=== PATIENT | male | born 1965 | race African-American/Black ===

== ENCOUNTER 2019-07-02 17:31 | Emergency (ER) | payer MEDICARE, MEDICAID ==
[~2019-07-02] VITALS: Ht 172.7 cm; Wt 86.2 kg
[2019-07-02] MEDS ORDERED: IPRATROPIUM BROM 0.5 MG/2.5ML INH SOL HHN ONE (19:15)
[2019-07-02] MEDS ORDERED: ALBUTEROL SULF 2.5 MG/0.5ML(0.5%) NEB SOLN HHN ONE (19:15)
[2019-07-02 19:56] LABS: Basophils # (auto) 0 uL; Basophils % (auto) 0.4 % (0.0-2.0); Eosinophils # (auto) 0.2 uL; Eosinophils % (auto) 2.7 % (0.0-7.0); Hematocrit 37.5 % (41.0-53.0); Hemoglobin 12.5 g/dL (13.5-17.5); Lymphocytes # (auto) 0.9 uL; Lymphocytes % (auto) 11.4 % (10.0-50.0); Mean Corpuscular Hemoglobin 29.9 pg (28.0-32.0); Mean Corpuscular Hgb Conc. 33.2 g/dL (32.0-36.0); Mean Corpuscular Volume 90.1 fL (80.0-100.0); Monocytes # (auto) 0.7 uL; Monocytes % (auto) 9.1 % (0.0-12.0); Neutrophils # (auto) 6.3 uL; Neutrophils % (auto) 76.4 % (37.0-80.0); Platelet Count (auto) 198 10^3/uL (140-450); Red Blood Cells 4.16 10^6/uL (4.5-5.90); White Blood Cell 8.2 10^3/uL (4.4-10.8)
[2019-07-02 20:24] LABS: Albumin 3.3 g/dL (3.4-5.0); Calcium 9.5 mg/dL (8.5-10.1)
[2019-07-02 20:29] LABS: BUN/Creatinine Ratio 25.4; Bilirubin, Total 0.3 mg/dL (0.2-1.0); Total Protein 8.3 g/dL (6.4-8.2)
[2019-07-02 20:50] LABS: Urine Bacteria NONE SEEN /hpf (None Seen); Urine Blood 1+ /uL (Negative); Urine Hyaline Cast MOD /lpf (0 - 2); Urine Mucus FEW (None Seen); Urine Specific Gravity 1.015 (1.001-1.035); Urine WBC 49 /hpf (0 - 3)
[2019-07-02] MEDS ORDERED: LEVOFLOXACIN 500 MG TAB PO ONE (21:15)
[2019-07-02 22:01] VITALS: BP 157/77
== END 2019-07-03 00:18 | disposition home or self-care (01) ==
LOC: EDBD 17:31 → ER 17:51
DX: J18.1 Lobar pneumonia, unspecified organism (principal); N39.0 Urinary tract infection, site not specified
CPT/HCPCS: 36415; 71045; 80053; 81001; 82962; 85025; 94644; 99285; J7611; J7644

== ENCOUNTER 2019-07-05 15:13 | Inpatient (IN) | payer MEDICARE, MEDICAID ==
[~2019-07-05] VITALS: Ht 175.3 cm; Wt 112.6 kg
[2019-07-05] MEDS ORDERED: SODIUM CHLORIDE 0.9% 1,000 ML IV ONE (15:44)
[2019-07-05 17:46] LABS: Basophils # (auto) 0.1 uL; Basophils % (auto) 0.8 % (0.0-2.0); Eosinophils # (auto) 0.1 uL; Eosinophils % (auto) 0.7 % (0.0-7.0); Hematocrit 37.8 % (41.0-53.0); Hemoglobin 12.6 g/dL (13.5-17.5); Lymphocytes # (auto) 1.4 uL; Lymphocytes % (auto) 15.1 % (10.0-50.0); Mean Corpuscular Hemoglobin 29.8 pg (28.0-32.0); Mean Corpuscular Hgb Conc. 33.2 g/dL (32.0-36.0); Mean Corpuscular Volume 89.7 fL (80.0-100.0); Monocytes # (auto) 0.7 uL; Monocytes % (auto) 7.9 % (0.0-12.0); Neutrophils % (auto) 75.5 % (37.0-80.0); Nucleated Red Blood Cells % 0.1 %; Platelet Count (auto) 220 10^3/uL (140-450); Red Blood Cells 4.22 10^6/uL (4.5-5.90); Red Cell Distribution Width 15.1 % (11.8-14.3); White Blood Cell 9.3 10^3/uL (4.4-10.8)
[2019-07-05 17:58] LABS: Alanine Aminotransferase 19 U/L (16-61); Albumin 3.4 g/dL (3.4-5.0); Anion Gap 8 (5-15); Aspartate Aminotransferase 11 U/L (15-37); BUN/Creatinine Ratio 31.7; Blood Urea Nitrogen 19 mg/dL (7-18); Calcium 9.5 mg/dL (8.5-10.1); Carbon Dioxide 28 mmol/L (21-32); Chloride 104 mmol/L (98-107); GFR African American 181 mL/min; GFR Non-African American 149 mL/min; Glucose 60 mg/dL (74-106); Sodium 140 mmol/L (136-145)
[2019-07-05] MEDS ORDERED: LACTULOSE 20Gm/30ML SOLN PO PRN (18:00)
[2019-07-05] MEDS ORDERED: MORPHINE SULF INJ 2 MG/ML SYRINGE 1ML IV PRN (18:00)
[2019-07-05] MEDS ORDERED: ALBUTEROL SULF 2.5 MG/0.5ML(0.5%) NEB SOLN NEB PRN (18:00)
[2019-07-05] MEDS ORDERED: DEXTROSE (50%) 50ML SYRG IV PRN (18:00)
[2019-07-05] MEDS ORDERED: OSELTAMIVIR 75 MG CAP PO ONE (18:00)
[2019-07-05] MEDS ORDERED: NITROGLYCERIN 0.4 MG SL TAB SL PRN (18:00)
[2019-07-05 18:04] LABS: Alkaline Phosphatase 60 U/L (45-117); Bilirubin, Total 0.4 mg/dL (0.2-1.0); Total Protein 8.3 g/dL (6.4-8.2)
[2019-07-05 18:07] LABS: Potassium 2.9 mmol/L (3.5-5.1)
[2019-07-05] MEDS ORDERED: ARTIFICIAL TEARS 15ml EACHEYE PRN (18:30)
[2019-07-05] MEDS ORDERED: POTASSIUM EFFERVESENT TAB 25 MEQ PO ONE (18:45)
[2019-07-05 19:14] VITALS: BP 162/90
--- NOTE | 2019-07-05 20:40 | NUR ---
[facility] Patient oriented to primary RN, unit, room, bed, and unit policies regarding patient care and visiting hours. Patient weighed by bedscale and encouraged to call if they need something. All questions and concerns addressed, patient verbalized understanding. Bed locked in lowest position and bed rails up x2. Call light within reach.
[2019-07-05 21:00] VITALS: BP 119/84
[2019-07-05] MEDS: IPRATROPIUM BROM 0.5 MG/2.5ML INH SOL NEB SCH (21:20)
[2019-07-05] MEDS: ALBUTEROL SULF 2.5 MG/0.5ML(0.5%) NEB SOLN NEB SCH (21:20)
[2019-07-05 21:38] VITALS: BP 119/84
[2019-07-05 22:00] VITALS: BP 142/84
[2019-07-05] MEDS: InsuLIN REG 1unit/0.01ml Soln (100units/ml) SC SCH (22:00)
[2019-07-05] MEDS: POTASSIUM CHL 20MEQ/100ML 100 ML IV SCH (22:10)
[2019-07-05] MEDS: CARVEDILOL 12.5 MG TAB PO SCH (22:45)
[2019-07-05] MEDS: DOCUSATE SOD 100 MG CAP PO SCH (22:46)
[2019-07-05] MEDS: OXYBUTYNIN CHL 5 MG TAB PO SCH (22:46)
[2019-07-05] MEDS: OSELTAMIVIR 75 MG CAP PO SCH (22:47)
[2019-07-05] MEDS: ACCU-CHEK COMFORT CURVE STRIP VI SCH (22:52)
[2019-07-06] MEDS: ALBUTEROL SULF 2.5 MG/0.5ML(0.5%) NEB SOLN NEB SCH ×4 (00:28→18:34)
[2019-07-06] MEDS: IPRATROPIUM BROM 0.5 MG/2.5ML INH SOL NEB SCH ×4 (00:28→18:34)
[2019-07-06] MEDS: POTASSIUM CHL 20MEQ/100ML 100 ML IV SCH (00:44)
[2019-07-06 00:47] LABS: Urine Bacteria MOD /hpf (None Seen); Urine Blood TRACE /uL (Negative); Urine Mucus FEW (None Seen); Urine Specific Gravity 1.021 (1.001-1.035); Urine WBC 65 /hpf (0 - 3)
[2019-07-06] MEDS: PROMETHAZINE HCL 25 MG/ML 1ML IV PRN ×2 (01:43→13:16)
[2019-07-06] MEDS: SOD CHL 0.9%/ KCL 40MEQ 1,000 ML IV SCH ×3 (03:33→20:40)
[2019-07-06] MEDS ORDERED: BACL20TA PO (04:35)
[2019-07-06] MEDS ORDERED: FERR27TA2 PO (04:35)
[2019-07-06] MEDS ORDERED: DOCU-94 PO (04:35)
[2019-07-06] MEDS ORDERED: TRAM50TA2 PO (04:35)
[2019-07-06] MEDS ORDERED: MODA200T50 PO (04:35)
[2019-07-06] MEDS ORDERED: AMLO10TA13 PO (04:35)
[2019-07-06] MEDS ORDERED: INSU100I2 SC (04:35)
[2019-07-06] MEDS ORDERED: PIO30T PO (04:35)
[2019-07-06] MEDS ORDERED: LISI40TA PO (04:35)
[2019-07-06] MEDS ORDERED: METH118C PO (04:35)
[2019-07-06] MEDS ORDERED: OXYB5TAB61 PO (04:35)
[2019-07-06] MEDS ORDERED: LORA10CA12 PO (04:35)
[2019-07-06] MEDS ORDERED: ASCO100076 PO (04:35)
[2019-07-06] MEDS ORDERED: PSYL0.524 PO (04:35)
[2019-07-06] MEDS ORDERED: RANI-226 PO (04:35)
[2019-07-06] MEDS ORDERED: GLIP10TA9 PO (04:35)
[2019-07-06] MEDS ORDERED: POTA10TA51 PO (04:35)
[2019-07-06] MEDS ORDERED: INSU300I SC (04:35)
[2019-07-06] MEDS ORDERED: MULTTAB OR (04:35)
[2019-07-06] MEDS ORDERED: ALEN1TAB32 PO (04:35)
[2019-07-06] MEDS ORDERED: CALCTAB25 PO (04:35)
[2019-07-06] MEDS ORDERED: CARV6.2551 PO ×2 (04:35)
[2019-07-06] MEDS ORDERED: SENN-62 PO (04:35)
[2019-07-06] MEDS ORDERED: IPRA0.00 IN (04:35)
[2019-07-06] MEDS ORDERED: HYDR50TA15 PO (04:35)
[2019-07-06] MEDS ORDERED: METO10TA3 PO (04:35)
[2019-07-06] MEDS ORDERED: PYRI50TA67 PO (04:35)
[2019-07-06] MEDS ORDERED: FLUT1SPR5 (04:35)
[2019-07-06] MEDS ORDERED: ACET-1304 PO (04:35)
[2019-07-06] MEDS ORDERED: CYAN1TAB11 PO (04:35)
[2019-07-06] MEDS ORDERED: CHLO25TA22 PO (04:35)
[2019-07-06] MEDS ORDERED: IBUP800T24 PO (04:35)
[2019-07-06] MEDS ORDERED: TAMS0.4C36 PO (04:35)
[2019-07-06] MEDS ORDERED: CHOL20007 PO (04:35)
[2019-07-06] MEDS ORDERED: DIAZ2TAB PO (04:35)
[2019-07-06] MEDS ORDERED: CRANCAP4 PO (04:35)
[2019-07-06] MEDS ORDERED: ROSU5TAB5 PO (04:35)
[2019-07-06] MEDS ORDERED: FENO134C PO (04:35)
[2019-07-06] MEDS ORDERED: ARTISOL13 EACHEYE (04:35)
[2019-07-06] MEDS ORDERED: DICL-176 PO (04:35)
[2019-07-06] MEDS ORDERED: OYST500T48 OR (04:35)
[2019-07-06] MEDS ORDERED: NIAC250C16 PO (04:35)
[2019-07-06 05:24] VITALS: BP 137/76
[2019-07-06] MEDS: ACCU-CHEK COMFORT CURVE STRIP VI SCH ×4 (06:29→22:46)
[2019-07-06] MEDS: glipiZIDE 5 MG TAB PO SCH (07:03)
[2019-07-06] MEDS: InsuLIN REG 1unit/0.01ml Soln (100units/ml) SC SCH ×4 (07:04→22:46)
[2019-07-06 08:56] VITALS: BP 146/94
[2019-07-06] MEDS: CARVEDILOL 12.5 MG TAB PO SCH ×2 (08:57→17:42)
--- NOTE | 2019-07-06 09:45 | NUR ---
SKIN ASSESSMENT COMPLETED. HEALING WOUND, PINK IN APPEARANCE TO RIGHT LOWER LATERAL BUTTOCK, HEALED ULCER TO SACRUM; AREAS CLEANSED WITH NS; HYDRA-GUARD APPLIED, OPTIFOAM APPLIED. COMPLETE BED LINEN CHANGE. COMFORTABLE ENVIRONMENT PROVIDED. PT TOLERATED ACTIVITY WELL. BED LOCKED AND IN LOWEST POSITION. CALL LIGHT WITHIN REACH.
[2019-07-06] MEDS: OSELTAMIVIR 75 MG CAP PO SCH ×3 (10:00→22:47)
[2019-07-06] MEDS: OXYBUTYNIN CHL 5 MG TAB PO SCH ×2 (11:05→22:46)
[2019-07-06] MEDS: LEVOFLOXACIN 500MG 100 ML IV SCH (11:05)
[2019-07-06] MEDS: DOCUSATE SOD 100 MG CAP PO SCH ×2 (11:05→22:46)
[2019-07-06] MEDS: LISINOPRIL 20 MG TAB PO SCH (11:07)
[2019-07-06] MEDS: amLODIPine BESYLATE 5 MG TAB PO SCH (11:08)
[2019-07-06] MEDS: ENOXAPARIN SOD 40 MG/0.4 ML SYRINGE SC SCH (11:08)
[2019-07-06 13:00] VITALS: BP 162/81
[2019-07-06] MEDS ORDERED: LORATADINE 10 MG TAB PO ONE (14:15)
[2019-07-06] MEDS ORDERED: HYDROcodone-ACET 5/325MG TAB PO PRN (14:15)
[2019-07-06] MEDS ORDERED: SIMETHICONE 80 MG CHEWABLE TABLET PO ONE (14:15)
[2019-07-06] MEDS: ACETAMINOPHEN 500 MG TAB PO PRN (15:02)
[2019-07-06] MEDS: guaiFENesin-DM 100/10mg/5ml SYR PO PRN ×2 (15:02→23:03)
--- NOTE | 2019-07-06 15:25 | NUR ---
URINE Cx SPECIMEN COLLECTED, SENT TO LAB.
[2019-07-06 16:55] VITALS: BP 167/79
[2019-07-06] MEDS: TAMSULOSIN HYDROCHLORIDE 0.4 MG CAP PO SCH (17:42)
[2019-07-06] MEDS: SIMETHICONE 80 MG CHEWABLE TABLET PO SCH ×2 (17:42→22:47)
[2019-07-06 18:26] LABS: BUN/Creatinine Ratio 25.4; Calcium 8.5 mg/dL (8.5-10.1); Potassium 3.5 mmol/L (3.5-5.1)
--- NOTE | 2019-07-06 19:55 | NUR ---
Opening Shift Note Assumed care of patient, awake and alert. No S/S of distress/SOB or pain. Instructed on POC and to call for assist PRN, will continue to monitor for changes Q1hr and PRN. Suprapubic and condom catheter intact, bag hanging below bed, and draining to gravity. Possey booths on with arm splinters. No pain at the moment.
[2019-07-06 20:00] VITALS: BP 115/73
--- NOTE | 2019-07-06 20:40 | NUR ---
Patient refused insulin. Patient stated that he only gets insulin coverage if its after 160. Educated on the need but still refused.
[2019-07-06 21:30] VITALS: BP 115/73
--- NOTE | 2019-07-07 00:50 | NUR ---
Respiratory sputum collected and send to lab
[2019-07-07] MEDS: PROMETHAZINE HCL 25 MG/ML 1ML IV PRN ×2 (04:43→16:44)
[2019-07-07 05:00] VITALS: BP 138/78
--- NOTE | 2019-07-07 05:00 | NUR ---
LIDA IV removal IV DC'd with clean sterile technique, catheter fully intact. Pressure dressing applied to site. Patient tolerated well.
--- NOTE | 2019-07-07 05:30 | NUR ---
IV insertion IV access obtained, via clean sterile technique by inserting 20 gauge catheter at after 6 attempts. IV secured properly. No trauma to site. Patient tolerated well.
[2019-07-07] MEDS: SIMETHICONE 80 MG CHEWABLE TABLET PO SCH ×4 (06:31→22:01)
[2019-07-07] MEDS: glipiZIDE 5 MG TAB PO SCH (06:31)
[2019-07-07] MEDS: ACCU-CHEK COMFORT CURVE STRIP VI SCH ×3 (06:32→18:16)
[2019-07-07] MEDS: InsuLIN REG 1unit/0.01ml Soln (100units/ml) SC SCH ×4 (06:32→22:00)
--- NOTE | 2019-07-07 06:32 | NUR ---
Patient refused morning insulin. He stated "I only take insulin if its above 160". Educated but still refused.
[2019-07-07] MEDS: ALBUTEROL SULF 2.5 MG/0.5ML(0.5%) NEB SOLN NEB SCH ×5 (06:51→23:39)
[2019-07-07] MEDS: IPRATROPIUM BROM 0.5 MG/2.5ML INH SOL NEB SCH ×5 (06:51→23:39)
[2019-07-07 09:00] VITALS: BP 121/77
--- NOTE | 2019-07-07 09:27 | NUR ---
WOUND CARE NOTE: ORDERED SPECIALTY AIR MATTRESS AT THIS TIME. PATIENT TO BE PLACED, PENDING DELIVERY BY KLEBER THOMSON
[2019-07-07] MEDS: OSELTAMIVIR 75 MG CAP PO SCH ×2 (10:00→22:00)
[2019-07-07] MEDS: CARVEDILOL 12.5 MG TAB PO SCH ×2 (10:01→18:15)
[2019-07-07] MEDS: SOD CHL 0.9%/ KCL 40MEQ 1,000 ML IV SCH ×2 (10:01→23:20)
[2019-07-07] MEDS: LEVOFLOXACIN 500MG 100 ML IV SCH (10:02)
[2019-07-07] MEDS: OXYBUTYNIN CHL 5 MG TAB PO SCH ×2 (10:03→22:02)
[2019-07-07] MEDS: LORATADINE 10 MG TAB PO SCH (10:03)
[2019-07-07] MEDS: LISINOPRIL 20 MG TAB PO SCH (10:03)
[2019-07-07] MEDS: ENOXAPARIN SOD 40 MG/0.4 ML SYRINGE SC SCH (10:03)
[2019-07-07] MEDS: DOCUSATE SOD 100 MG CAP PO SCH ×2 (10:03→22:02)
[2019-07-07] MEDS: amLODIPine BESYLATE 5 MG TAB PO SCH (10:04)
--- NOTE | 2019-07-07 10:05 | NUR ---
PASSED MORNING MEDICATIONS, PT TOLERATED WELL. DENIES ANY DISCOMFORT AT MOMENT. PT ON 3LNC AT MOMENT, PT REQUIRING ASSISTANCE FOR SPUTUM EXPECTORATION AND SUCTIONING. HOB>[address], STOOL DRAINED. SUPRAPUBIC CATHETER IN PLACE, PATENT. IV PRESENT TO LEFT HAND #20. BED LOCKED AND IN LOWEST POSITION, CALL LIGHT WITHIN REACH. WILL CONTINUE TO MONITOR.
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
[2019-07-07 13:00] VITALS: BP 147/96
--- NOTE | 2019-07-07 13:00 | NUR ---
PT'S CAREGIVER BROUGHT IN COLOSTOMY BAG SUPPLIES. CAREGIVER CHANGED COLOSTOMY BAG; PER PT'S REQUEST.
[2019-07-07] MEDS ORDERED: FLUTICASONE PROP NASAL SPR 0.05 % (50MCG) 16GM EACHNOSTRI ONE (15:00)
[2019-07-07 17:00] VITALS: BP 153/85
[2019-07-07] MEDS: ACETYLCYSTEINE 10 %(100MG/ML) SOL 4ML NEB SCH ×2 (18:04→23:39)
--- NOTE | 2019-07-07 18:04 | NUR ---
RT NOTE PT WAS SEEN BY RT FOR HHN TX. PT TOLERATES WELL VIA MASK. NO ADVERSE REACTION NOTED. PT EDUCATED ON NEW MEDICATION WITH HHN TX. PT HAS A NOTED PRODUCTIVE COUGH. MODERATE PRODUCTION SLIGHTLY BLOODY NOTED. CONT ORDERED Addendum: 07/07/19 at 1812 by Janet Maciel RT Amended: Links added.
[2019-07-07] MEDS: TAMSULOSIN HYDROCHLORIDE 0.4 MG CAP PO SCH (18:15)
--- NOTE | 2019-07-07 20:21 | NUR ---
RECEIVED PATIENT RESTING IN BED, CALL AZUL WITH IN REACH, PATIENT TESTED CALL AZUL TO MAKE SURE IT IS WORKING. DENIES PAIN OR DISCOMFORT. IVF INFUSING TO LEFT HAND IV ACCESS ORDERED. PATIENT CONCERNED ABOUT NOT BEING ABLE TO BE HEARD WHEN IN NEED, REASSURED PATIENT THAT HIS CALL AZUL WILL BE ANSWERED PROMPTLY.
[2019-07-07] MEDS: guaiFENesin-DM 100/10mg/5ml SYR PO PRN (22:01)
[2019-07-07] MEDS: FLUTICASONE PROP NASAL SPR 0.05 % (50MCG) 16GM EACHNOSTRI SCH (22:02)
--- NOTE | 2019-07-07 22:10 | NUR ---
RT NOTE PT NASALLY SUCTIONED PER PT REQUEST. NEW HHN SET UP PLACED AT BEDSIDE. CONT ORDERED
[2019-07-07 22:15] LABS: Basophils # (auto) 0 uL; Basophils % (auto) 0.1 % (0.0-2.0); Eosinophils # (auto) 0 uL; Eosinophils % (auto) 0.1 % (0.0-7.0); Hematocrit 36.6 % (41.0-53.0); Lymphocytes # (auto) 0.7 uL; Lymphocytes % (auto) 4.9 % (10.0-50.0); Mean Corpuscular Hemoglobin 29.9 pg (28.0-32.0); Mean Corpuscular Hgb Conc. 32.7 g/dL (32.0-36.0); Mean Corpuscular Volume 91.3 fL (80.0-100.0); Monocytes # (auto) 0.6 uL; Monocytes % (auto) 4.5 % (0.0-12.0); Neutrophils # (auto) 12.7 uL; Neutrophils % (auto) 90.4 % (37.0-80.0); Platelet Count (auto) 181 10^3/uL (140-450); Red Blood Cells 4.01 10^6/uL (4.5-5.90); Red Cell Distribution Width 15.3 % (11.8-14.3)
[2019-07-07 22:25] VITALS: BP 124/73
[2019-07-07 22:36] LABS: Potassium 3.3 mmol/L (3.5-5.1)
[2019-07-07 22:37] LABS: Albumin 2.9 g/dL (3.4-5.0); Calcium 7.9 mg/dL (8.5-10.1)
[2019-07-07 22:42] LABS: Bilirubin, Total 0.7 mg/dL (0.2-1.0); Total Protein 7.8 g/dL (6.4-8.2)
--- NOTE | 2019-07-07 23:44 | NUR ---
RT NOTE: PT REQUESTING COUGH ASSIST, PRESSURE APPLIED TO ABDOMEN AND PT ABLE TO BRING UP MODERATE AMOUNT OF SEMI THICK CORONEL BLOOD TINGED SECRETIONS. ALSO NTS X2 RIGHT NARE. PT TOLERATED WELL. MED NEB TX GIVEN VIA MASK.
[2019-07-08] MEDS: SOD CHL 0.9%/ KCL 40MEQ 1,000 ML IV SCH (00:35)
--- NOTE | 2019-07-08 00:35 | NUR ---
IV FLUIDS STOPPED
--- NOTE | 2019-07-08 00:39 | NUR ---
PATIENT HAVING A HARD TIME COUGHING UP SECRETIONS, RT GAVE BREATHING TREATMENTS AND SUCTION ORALLY, PATIENT STILL CONTINUES TO C/O CONGESTION. HOSPITALIST PAGED WITH NEW ORDER TO STOP IV FLUIDS AND DO CXR.
[2019-07-08] MEDS: ACCU-CHEK COMFORT CURVE STRIP VI SCH ×5 (01:14→21:55)
--- NOTE | 2019-07-08 01:52 | NUR ---
PATIENT UNABLE TO COUGH DEEPLY, NEEDING ASSISTANCE TO COUGH BY PUSHING ON HIS CHEST.
--- NOTE | 2019-07-08 01:55 | NUR ---
CALLED HOSPITALIST TO NOTIFY CXR COMPLETED.
[2019-07-08 05:23] VITALS: BP 160/89
[2019-07-08 06:06] LABS: Basophils # (auto) 0.1 uL; Basophils % (auto) 0.6 % (0.0-2.0); Eosinophils # (auto) 0 uL; Eosinophils % (auto) 0.1 % (0.0-7.0); Hemoglobin 11.8 g/dL (13.5-17.5); Lymphocytes # (auto) 0.8 uL; Lymphocytes % (auto) 5.9 % (10.0-50.0); Mean Corpuscular Hemoglobin 29.8 pg (28.0-32.0); Mean Corpuscular Hgb Conc. 33.6 g/dL (32.0-36.0); Mean Corpuscular Volume 88.6 fL (80.0-100.0); Monocytes # (auto) 0.6 uL; Monocytes % (auto) 4.6 % (0.0-12.0); Neutrophils # (auto) 11.4 uL; Neutrophils % (auto) 88.8 % (37.0-80.0); Platelet Count (auto) 194 10^3/uL (140-450); Red Blood Cells 3.96 10^6/uL (4.5-5.90); Red Cell Distribution Width 15.2 % (11.8-14.3); White Blood Cell 12.8 10^3/uL (4.4-10.8)
[2019-07-08 06:29] LABS: Potassium 3.1 mmol/L (3.5-5.1)
[2019-07-08 06:31] LABS: BUN/Creatinine Ratio 26.9
[2019-07-08] MEDS: SIMETHICONE 80 MG CHEWABLE TABLET PO SCH ×4 (06:52→21:54)
[2019-07-08] MEDS: InsuLIN REG 1unit/0.01ml Soln (100units/ml) SC SCH ×4 (06:53→21:55)
[2019-07-08] MEDS: glipiZIDE 5 MG TAB PO SCH (06:53)
[2019-07-08] MEDS: ALBUTEROL SULF 2.5 MG/0.5ML(0.5%) NEB SOLN NEB SCH ×4 (07:34→23:59)
[2019-07-08] MEDS: ACETYLCYSTEINE 10 %(100MG/ML) SOL 4ML NEB SCH ×3 (07:34→23:59)
[2019-07-08] MEDS: IPRATROPIUM BROM 0.5 MG/2.5ML INH SOL NEB SCH ×4 (07:34→23:59)
[2019-07-08 09:00] VITALS: BP 139/77
[2019-07-08] MEDS: DOCUSATE SOD 100 MG CAP PO SCH ×2 (09:26→21:54)
[2019-07-08] MEDS: LORATADINE 10 MG TAB PO SCH (09:27)
[2019-07-08] MEDS: LEVOFLOXACIN 500MG 100 ML IV SCH (09:27)
[2019-07-08] MEDS: OXYBUTYNIN CHL 5 MG TAB PO SCH ×2 (09:28→21:54)
[2019-07-08] MEDS: LISINOPRIL 20 MG TAB PO SCH (09:29)
[2019-07-08] MEDS: ENOXAPARIN SOD 40 MG/0.4 ML SYRINGE SC SCH (09:30)
[2019-07-08] MEDS: CARVEDILOL 12.5 MG TAB PO SCH ×2 (09:30→18:08)
[2019-07-08] MEDS: amLODIPine BESYLATE 5 MG TAB PO SCH (09:30)
[2019-07-08] MEDS: FLUTICASONE PROP NASAL SPR 0.05 % (50MCG) 16GM EACHNOSTRI SCH ×2 (10:00→21:54)
[2019-07-08] MEDS ORDERED: POTASSIUM EFFERVESENT TAB 25 MEQ PO ONE (11:15)
[2019-07-08] MEDS ORDERED: VANCOMYCIN PER PHARMACY 0 MG IV SCH (11:30)
[2019-07-08] MEDS: Glucerna Carbsteady SHAKE Vanilla 8oz PO SCH ×2 (12:00→18:08)
--- NOTE | 2019-07-08 12:56 | NUR ---
NUTRITION CONSULT/ASSESSMENT NOTES Please refer to link notes of nutrition screen form filed under the intervention section of the plan of care for further details. Est. Needs based on AdBW (80 kg): 1600 kcal to 2000 kcal (20-25 kcal/kgAdBW), 80 gms to 96 gms pro (1.0-1.2 gms/kgAdBW). Will continue to monitor pertinent labs and reassess nutrient need prn Thank you for this consult. Addendum: 07/08/19 at [address] Amended: Links added.
[2019-07-08 13:00] VITALS: BP 136/85
[2019-07-08] MEDS: VANCOMYCIN 1GM/250ML 250 ML IV SCH ×2 (13:00→21:53)
--- NOTE | 2019-07-08 15:59 | NUR ---
Assessment Pt is a 54 yr old alert and oriented male. Prior to admit, pt lived with [facility] caregiver. Pt's ex-, Monie Alcala, is his emergency contact at [phone]. Pt is quadriplegic and Prior to admit, pt required full assist with ADL's cooking and cleaning and uses a power chair, Aicha lift, and shower chair. Pt stated that he needs 02 in the home. Pt would benefit from testing 02 levels on room air to test need for in home 02. Pt admitted with pneumonia. Pt's Primary is Dr. Zully Jara and no AD on file. Pt was previously employed prior to admit, but is applying for [employer] income. Pt will need medical transport via Ambulance via [employer] with 4 person lift due to a gurney not fitting in his home. Pt will d/c home upon medical clearance. Pt would benefit from possible home 02 if qualifications met. Addendum: 07/08/19 at 1608 by ALTON DURON Amended: Links added.
[2019-07-08 17:00] VITALS: BP 143/83
[2019-07-08 18:06] LABS: BUN/Creatinine Ratio 29.2; Calcium 7.9 mg/dL (8.5-10.1); Potassium 3.2 mmol/L (3.5-5.1)
[2019-07-08] MEDS: TAMSULOSIN HYDROCHLORIDE 0.4 MG CAP PO SCH (18:08)
[2019-07-08 22:00] VITALS: BP 145/92
[2019-07-09] MEDS: SOD CHL 0.9%/ KCL 40MEQ 1,000 ML IV SCH ×2 (00:41→15:20)
[2019-07-09 03:20] VITALS: BP 145/92
[2019-07-09 05:17] VITALS: BP 130/78
[2019-07-09] MEDS: VANCOMYCIN 1GM/250ML 250 ML IV SCH ×3 (05:23→21:02)
[2019-07-09] MEDS: glipiZIDE 5 MG TAB PO SCH (05:25)
[2019-07-09] MEDS: SIMETHICONE 80 MG CHEWABLE TABLET PO SCH ×4 (05:25→21:04)
[2019-07-09] MEDS: BACLOFEN 10 MG TAB PO PRN ×2 (05:26→21:03)
[2019-07-09] MEDS: guaiFENesin-DM 100/10mg/5ml SYR PO PRN ×2 (05:27→21:03)
[2019-07-09] MEDS: InsuLIN REG 1unit/0.01ml Soln (100units/ml) SC SCH ×4 (05:39→21:29)
[2019-07-09] MEDS: ACCU-CHEK COMFORT CURVE STRIP VI SCH ×4 (06:34→21:29)
--- NOTE | 2019-07-09 07:00 | NUR ---
END OF SHIFT SUMMARY: PATIENT CONTINUES TO HAVE EPISODES OF WEAK COUGH, UNABLE TO EXPECTORATE SECRETIONS, NEEDING ASSISTANCE TO PUSH ON MID CHEST/EPIGASTRIC AREA. CONTINUES ON VANCOMYCIN ORDERED. REPOSITIONED PER PATIENTS REQUEST.
--- NOTE | 2019-07-09 07:00 | NUR ---
PATIENT RESTING, UNLABORED BREATHING, NO SIGNS OF DISTRESS. BED ON LOWEST POSITION FOR SAFETY, CALL LIGHT WITH IN REACH. WILL CONTINUE TO MONITOR.
[2019-07-09] MEDS: ACETYLCYSTEINE 10 %(100MG/ML) SOL 4ML NEB SCH ×3 (07:15→18:15)
[2019-07-09 08:00] LABS: Basophils # (auto) 0 uL; Basophils % (auto) 0.3 % (0.0-2.0); Eosinophils # (auto) 0 uL; Eosinophils % (auto) 0.4 % (0.0-7.0); Hematocrit 34.8 % (41.0-53.0); Hemoglobin 11.9 g/dL (13.5-17.5); Lymphocytes # (auto) 0.6 uL; Lymphocytes % (auto) 5.5 % (10.0-50.0); Mean Corpuscular Hemoglobin 30.2 pg (28.0-32.0); Mean Corpuscular Hgb Conc. 34.1 g/dL (32.0-36.0); Mean Corpuscular Volume 88.6 fL (80.0-100.0); Monocytes # (auto) 0.6 uL; Monocytes % (auto) 6.1 % (0.0-12.0); Neutrophils # (auto) 9.2 uL; Neutrophils % (auto) 87.7 % (37.0-80.0); Platelet Count (auto) 187 10^3/uL (140-450); Red Blood Cells 3.93 10^6/uL (4.5-5.90); Red Cell Distribution Width 14.5 % (11.8-14.3); White Blood Cell 10.5 10^3/uL (4.4-10.8)
[2019-07-09] MEDS: CARVEDILOL 12.5 MG TAB PO SCH ×2 (08:00→16:36)
[2019-07-09] MEDS: IPRATROPIUM BROM 0.5 MG/2.5ML INH SOL NEB SCH ×3 (08:01→18:15)
[2019-07-09] MEDS: ALBUTEROL SULF 2.5 MG/0.5ML(0.5%) NEB SOLN NEB SCH ×3 (08:01→18:15)
[2019-07-09 08:17] LABS: BUN/Creatinine Ratio 38.1; Calcium 7.6 mg/dL (8.5-10.1); Potassium 3.1 mmol/L (3.5-5.1)
[2019-07-09] MEDS: Glucerna Carbsteady SHAKE Vanilla 8oz PO SCH ×3 (08:27→16:36)
[2019-07-09] MEDS: amLODIPine BESYLATE 5 MG TAB PO SCH (08:35)
[2019-07-09] MEDS: LORATADINE 10 MG TAB PO SCH (08:35)
[2019-07-09] MEDS: PANTOPRAZOLE 40 MG TAB PO SCH (08:35)
[2019-07-09] MEDS: DOCUSATE SOD 100 MG CAP PO SCH ×2 (08:35→21:05)
[2019-07-09] MEDS: FLUTICASONE PROP NASAL SPR 0.05 % (50MCG) 16GM EACHNOSTRI SCH ×2 (08:36→21:03)
[2019-07-09] MEDS: OXYBUTYNIN CHL 5 MG TAB PO SCH ×2 (08:36→21:05)
[2019-07-09] MEDS: LISINOPRIL 20 MG TAB PO SCH (08:36)
[2019-07-09] MEDS: ENOXAPARIN SOD 40 MG/0.4 ML SYRINGE SC SCH (08:36)
[2019-07-09 09:34] VITALS: BP 145/80
[2019-07-09] MEDS ORDERED: LEVOFLOXACIN 750MG 150 ML IV SCH (10:00)
--- NOTE | 2019-07-09 11:48 | NUR ---
PATIENT COMFORTABLE, NOTED ABDOMEN IS DISTENDED, LACTULOSE GIVEN. COVERED WITH 3 UNITS OF INSULIN. BODY WIRER AT BEDSIDE. UNLABORED BREATHING, ONLY SUCTIONED PT ONCE TODAY, NOTHING AGGRESSIVE, STILL UNABLE TO MOVE SECRETIONS ON HIS OWN, BUT THEY HAVE BECOME THINNER.
[2019-07-09 13:00] VITALS: BP 128/80
--- NOTE | 2019-07-09 13:05 | NUR ---
Respiratory note: 1200 MEDNEB TX NOT GIVEN, PT REFUSING AND IS WANTING TO EAT LUNCH AT THIS TIME. PT SITTING IN BED HIGH FOWLERS, NO S/S OF RESPIRATORY DISTRESS NOTED AT THIS TIME. WILL NOTIFY NOC SHIFT RT FOR NEXT SCHEDULED TX.
[2019-07-09] MEDS: TAMSULOSIN HYDROCHLORIDE 0.4 MG CAP PO SCH (16:36)
[2019-07-09 16:59] VITALS: BP 116/53
[2019-07-09] MEDS: cefTAZidime 1 GM in SODIUM CHL 0.9% 50 ML IV SCH (17:23)
--- NOTE | 2019-07-09 18:25 | NUR ---
IV insertion IV access obtained, via clean sterile technique by inserting 22 gauge catheter at right upper arm after 1 attemp. IV secured properly. No trauma to site. Patient tolerated well.
--- NOTE | 2019-07-09 19:30 | NUR ---
Opening Shift Note Assumed care of patient, awake and alert. No S/S of distress/SOB or pain. Insructed on POC and to callfor assist PRN, will continue to monitor for changes Q1hr and PRN. Fall and safety precautions in place. Call light within reach.
[2019-07-09] MEDS: SENNA 8.6 MG TAB PO SCH (21:04)
[2019-07-09] MEDS: PROMETHAZINE HCL 25 MG/ML 1ML IV PRN (21:05)
[2019-07-09] MEDS: FERROUS SULFATE 325 MG TAB PO SCH (21:05)
[2019-07-09 22:00] VITALS: BP 111/67
[2019-07-10] MEDS: ALBUTEROL SULF 2.5 MG/0.5ML(0.5%) NEB SOLN NEB SCH ×4 (00:18→18:56)
[2019-07-10] MEDS: ACETYLCYSTEINE 10 %(100MG/ML) SOL 4ML NEB SCH ×4 (00:18→18:56)
[2019-07-10] MEDS: IPRATROPIUM BROM 0.5 MG/2.5ML INH SOL NEB SCH ×4 (00:18→18:56)
[2019-07-10] MEDS: cefTAZidime 1 GM in SODIUM CHL 0.9% 50 ML IV SCH ×3 (01:59→17:07)
--- NOTE | 2019-07-10 02:00 | NUR ---
IV FLUIDS Patient states he "feels like he's drowning," and requested for IV fluids to be stopped or slowed down. Current IV fluids order states 75ml/hr. IV fluids decreased to 25ml/hr. Educated patient on importance of IV fluids with electrolytes and keeping electrolytes balanced, patient verbalized understanding and agreed to keep IV fluids at 25ml/hr. Repositioned patient for comfort, bed in lowest and locked position, call light within reach. Will continue to monitor Addendum: 07/10/19 at 0222 by Vandana Vicente RN RN Side rails x2 up
[2019-07-10] MEDS: SOD CHL 0.9%/ KCL 40MEQ 1,000 ML IV SCH ×2 (04:29→17:07)
[2019-07-10 05:00] VITALS: BP 136/88
[2019-07-10] MEDS: VANCOMYCIN 1GM/250ML 250 ML IV SCH ×2 (05:00→13:00)
[2019-07-10] MEDS: guaiFENesin-DM 100/10mg/5ml SYR PO PRN ×3 (05:49→22:29)
[2019-07-10] MEDS: SIMETHICONE 80 MG CHEWABLE TABLET PO SCH ×4 (05:49→22:25)
[2019-07-10] MEDS: BACLOFEN 10 MG TAB PO PRN ×2 (05:49→15:40)
[2019-07-10] MEDS: FERROUS SULFATE 325 MG TAB PO SCH ×3 (05:49→22:10)
--- NOTE | 2019-07-10 07:00 | NUR ---
ASSUMED CARE. PATIENT AWAKE ALERT AND ORIENTED, UNLABORED BREATHING, POC EXPLAINED TO PATIENT. CALL LIGHT WITH IN REACH, BED ON LOWEST POSITION.
--- NOTE | 2019-07-10 07:00 | NUR ---
INSULIN Patient's blood sugar checked at this time; 162. Patient states he follows his own insulin sliding scale at home and that MD was aware. Patient stated 4 units of regular insulin to be administered. Informed patient that MD ordered mild sliding scale and according to this, 3 units of insulin should be given. Patient still insisting that 4 units be administered. 4 units of regular insulin administered. Will inform day shift RN
[2019-07-10] MEDS: glipiZIDE 5 MG TAB PO SCH (07:01)
[2019-07-10] MEDS: ACCU-CHEK COMFORT CURVE STRIP VI SCH ×4 (07:01→22:14)
[2019-07-10] MEDS: InsuLIN REG 1unit/0.01ml Soln (100units/ml) SC SCH ×4 (07:02→22:00)
[2019-07-10] MEDS: CARVEDILOL 12.5 MG TAB PO SCH ×2 (08:00→17:08)
[2019-07-10] MEDS: Glucerna Carbsteady SHAKE Vanilla 8oz PO SCH ×3 (08:13→17:38)
[2019-07-10 09:00] VITALS: BP 131/71
[2019-07-10] MEDS: PANTOPRAZOLE 40 MG TAB PO SCH (09:17)
[2019-07-10] MEDS: LORATADINE 10 MG TAB PO SCH (09:17)
[2019-07-10] MEDS: amLODIPine BESYLATE 5 MG TAB PO SCH (09:17)
[2019-07-10] MEDS: FLUTICASONE PROP NASAL SPR 0.05 % (50MCG) 16GM EACHNOSTRI SCH ×2 (09:17→22:17)
[2019-07-10] MEDS: DOCUSATE SOD 100 MG CAP PO SCH ×2 (09:17→22:10)
[2019-07-10] MEDS: OXYBUTYNIN CHL 5 MG TAB PO SCH ×2 (09:17→22:11)
[2019-07-10] MEDS: CYANOCOBALAMIN 500 MCG TAB PO SCH (09:18)
[2019-07-10] MEDS: LISINOPRIL 20 MG TAB PO SCH (09:18)
[2019-07-10] MEDS: ENOXAPARIN SOD 40 MG/0.4 ML SYRINGE SC SCH (09:18)
--- NOTE | 2019-07-10 11:39 | NUR ---
NEW UROLOGY CONSULT TO CHANGE SUPRAPUBIC CATHETER PLACED. DR SOLARES EXPLAINED POC TO PATIENT, ALL QUESTIONS REGARDING THERAPY AND POC ANSWERED BY THE DR. PATIENT VERBALIZED UNDERSTANDING.
--- NOTE | 2019-07-10 12:32 | NUR ---
SUCTION OF TRACH BRODERICK WELL OF THICK CORONEL AND RED SMALL RETURN
[2019-07-10 13:00] VITALS: BP 122/74
--- NOTE | 2019-07-10 13:51 | NUR ---
SPOKE WITH DR ZAMORA, DR WILL COME TOMORROW TO CHANGE THE PT'S SUPRAPUBIC CATHETER.CONVERSATION HAPPENED IN FRONT OF THE PATIENT, SO HE WAS ABLE TO INFORM US OF THE SIZE AND MATERIAL. PATIENT VERBALIZED UNDERSTANDING OF POC.
--- NOTE | 2019-07-10 15:25 | NUR ---
PATIENT WAS COUGH SECRETIONS, BUT HE IS UNABLE TO EXPECTORATE. NASAL AND MOUTH SUCTIONING WAS REQUIRED. PATIENT IS DOING WELL. REQUESTED TO STOP IV FLUIDS BECAUSE HE FEELS LIKE IS INCREASING HIS FLUIDS IN HIS LUNGS. YESTERDAY IT WAS NO FLUIDS RUNNING AND PATIENT DIDN'T NEED SUCTIONING FOR THE ENTIRE SHIFT. WILL CONTINUE TO MONITOR.
[2019-07-10] MEDS: PROMETHAZINE HCL 25 MG/ML 1ML IV PRN (15:39)
[2019-07-10 17:06] VITALS: BP 139/83
[2019-07-10] MEDS: TAMSULOSIN HYDROCHLORIDE 0.4 MG CAP PO SCH (17:08)
[2019-07-10] MEDS: ACETAMINOPHEN 500 MG TAB PO PRN (17:39)
--- NOTE | 2019-07-10 19:00 | NUR ---
CALLED RESPIRATORY THERAPIST FOR A BREATHING TREATMENT, PATIENT IS COMFORTABLE, ON HIS BACK DENIES PAIN. CALL LIGHT WITH IN REACH OF HIS LEFT HAND, BED ON LOWEST POSITION.
--- NOTE | 2019-07-10 19:30 | NUR ---
Opening Shift Note Assumed care of patient. Patient is awake and alert. No S/S of distress/SOB or pain. Trinh and suprapubic catheter and colostomy intact, patent and draining to gravity with no s/s of pain or discomfort. Patient lying supine comfortably. Instructed on POC and to call for assist PRN, will continue to monitor for changes Q1hr and PRN. Bed locked in lowest position and bed rails up x2. Call light within reach.
[2019-07-10 22:00] VITALS: BP 117/57
[2019-07-10] MEDS: SENNA 8.6 MG TAB PO SCH (22:10)
[2019-07-11] MEDS: ACETYLCYSTEINE 10 %(100MG/ML) SOL 4ML NEB SCH ×4 (00:36→19:40)
[2019-07-11] MEDS: IPRATROPIUM BROM 0.5 MG/2.5ML INH SOL NEB SCH ×4 (00:36→19:40)
[2019-07-11] MEDS: ALBUTEROL SULF 2.5 MG/0.5ML(0.5%) NEB SOLN NEB SCH ×4 (00:36→19:40)
[2019-07-11] MEDS: cefTAZidime 1 GM in SODIUM CHL 0.9% 50 ML IV SCH ×3 (02:30→17:40)
[2019-07-11 05:00] VITALS: BP 139/83
[2019-07-11] MEDS: FERROUS SULFATE 325 MG TAB PO SCH ×3 (06:21→20:49)
[2019-07-11] MEDS: SIMETHICONE 80 MG CHEWABLE TABLET PO SCH ×4 (06:21→20:50)
[2019-07-11] MEDS: InsuLIN REG 1unit/0.01ml Soln (100units/ml) SC SCH ×4 (06:22→22:00)
[2019-07-11] MEDS: ACCU-CHEK COMFORT CURVE STRIP VI SCH ×4 (06:22→22:00)
[2019-07-11] MEDS: SOD CHL 0.9%/ KCL 40MEQ 1,000 ML IV SCH ×2 (06:48→20:40)
[2019-07-11] MEDS: guaiFENesin-DM 100/10mg/5ml SYR PO PRN (06:49)
--- NOTE | 2019-07-11 07:00 | NUR ---
PATIENT RESTING, NO SIGNS OF DISTRESS. UNLABORED BREATHING AT THE TIME OF ASSESSMENT. PATIENT WAS SEEING BY DR HANSON LAST NIGHT, NO NEW ORDERS. PATIENT STILL RECEIVING BREATHING TREATMENTS, CHEST AND BACK PERCUSSION BY RT, SUCTIONING REGULARLY THROUGH THE DAY. PATIENT AWARE OF POC AND INFORMED OF ALL PROCEDURES. CALL LIGHT WITH IN REACH, BED ON LOWEST POSITION.
[2019-07-11] MEDS: glipiZIDE 5 MG TAB PO SCH (07:04)
[2019-07-11] MEDS: CARVEDILOL 12.5 MG TAB PO SCH ×2 (08:00→09:27)
[2019-07-11] MEDS: Glucerna Carbsteady SHAKE Vanilla 8oz PO SCH ×3 (08:00→18:00)
[2019-07-11 09:00] VITALS: BP 145/75
[2019-07-11] MEDS: ENOXAPARIN SOD 40 MG/0.4 ML SYRINGE SC SCH (09:11)
[2019-07-11] MEDS: SENNA 8.6 MG TAB PO SCH ×2 (09:11→20:49)
[2019-07-11] MEDS: FLUTICASONE PROP NASAL SPR 0.05 % (50MCG) 16GM EACHNOSTRI SCH ×2 (09:12→20:51)
[2019-07-11] MEDS: OXYBUTYNIN CHL 5 MG TAB PO SCH ×2 (09:13→20:50)
[2019-07-11] MEDS: DOCUSATE SOD 100 MG CAP PO SCH ×2 (09:13→20:50)
[2019-07-11] MEDS: amLODIPine BESYLATE 5 MG TAB PO SCH (09:13)
[2019-07-11] MEDS: LORATADINE 10 MG TAB PO SCH (09:13)
[2019-07-11] MEDS: PANTOPRAZOLE 40 MG TAB PO SCH (09:14)
[2019-07-11] MEDS: LISINOPRIL 20 MG TAB PO SCH (09:14)
[2019-07-11] MEDS: CYANOCOBALAMIN 500 MCG TAB PO SCH (09:14)
[2019-07-11] MEDS: PROMETHAZINE HCL 25 MG/ML 1ML IV PRN ×2 (09:28→10:44)
--- NOTE | 2019-07-11 10:01 | NUR ---
DR SOLARES SAW PATIENT,WENT OVER THE CT RESULTS, EXPLAINED THE NEED FOR THE ADVISOR CONSULTANT TO TALK TO PATIENT AND MAKE A RECOMMENDATION. THE PLAN NOW IS TO CONTINUE IV ANTIBIOTICS, PLACE A MIDLINE BECAUSE IT HAS BEEN VERY DIFFICULT TO KEEP A PERIPHERAL LINE TO CONTINUE PENITENTIARY ANTIBIOTICS.
--- NOTE | 2019-07-11 10:06 | NUR ---
PATIENT IS STABLE, DR CURTIS TALKED TO PATIENT, DISCUSSED PLAN OF CARE. PATIENT WILL BE DISCHARGED HOME.
--- NOTE | 2019-07-11 12:28 | NUR ---
PATIENT STABLE, TERRITORY SUPERVISOR IS GIVING HIM A FULL BATH, MOUTH CARE, FULL LINEN CHANGED.
[2019-07-11] MEDS ORDERED: SODIUM CHLORIDE LOCK 10 ML ONE (14:27)
[2019-07-11] MEDS ORDERED: LIDOCAINE 2%HCL (LOCAL ANESTH.) INJ 20ML MDV ONE (14:27)
[2019-07-11] MEDS ORDERED: MIDAZOLAM HCL 5 MG/ML-1ML VIAL ONE (14:28)
[2019-07-11] MEDS ORDERED: LIDOCAINE HCL 2% TOP JELLY 5ML TOP ONE (14:28)
[2019-07-11] MEDS ORDERED: EPINEPHrine HCL 1 MG/1 ML AMP ONE (14:28)
[2019-07-11] MEDS ORDERED: NALOXONE HCL 0.4 MG/ML VIAL ONE (14:29)
[2019-07-11] MEDS ORDERED: FLUMAZENIL 0.1 MG/ML INJ 10ML MDV IV ONE (14:29)
[2019-07-11 14:34] LABS: Basophils # (auto) 0 uL; Basophils % (auto) 0.3 % (0.0-2.0); Eosinophils # (auto) 0.1 uL; Eosinophils % (auto) 1.5 % (0.0-7.0); Hematocrit 36.7 % (41.0-53.0); Hemoglobin 12.6 g/dL (13.5-17.5); Lymphocytes # (auto) 0.8 uL; Lymphocytes % (auto) 8.3 % (10.0-50.0); Mean Corpuscular Hemoglobin 30.3 pg (28.0-32.0); Mean Corpuscular Hgb Conc. 34.2 g/dL (32.0-36.0); Mean Corpuscular Volume 88.5 fL (80.0-100.0); Monocytes # (auto) 0.6 uL; Monocytes % (auto) 6.8 % (0.0-12.0); Neutrophils # (auto) 7.8 uL; Neutrophils % (auto) 83.1 % (37.0-80.0); Platelet Count (auto) 189 10^3/uL (140-450); Red Blood Cells 4.15 10^6/uL (4.5-5.90); White Blood Cell 9.4 10^3/uL (4.4-10.8)
[2019-07-11] MEDS ORDERED: ACETYLCYSTEINE 10 %(100MG/ML) SOL 4ML NEB ONE (14:45)
[2019-07-11 14:51] LABS: INR 1.07 (0.9-1.15)
[2019-07-11 14:53] LABS: Calcium 8.5 mg/dL (8.5-10.1); Magnesium 2.1 mg/dL (1.6-2.6); Phosphorus 1.9 mg/dL (2.5-4.90)
--- NOTE | 2019-07-11 15:18 | NUR ---
NOTE FOR 07/11/2019 SUMMARY: 15:18-15:15:59-PT IN GI LAB FOR PROCEDURE, TELEPHONE ORDER RECEIVED FROM DR. HANSON OK TO OBTAIN IV ACCESS IN PT'S FOOT FOR PROCEDURE. PT C/O CHEST TIGHTNESS RADIATING TO BACK, NO S/S OF DISTRESS NOTED V/S STABLE. [address] PARK DIP STAND LOADER INFORMED OF PT STATUS AND EKG REPORT, MD REPORTS HE WILL SEE PT ON FLOOR. DR. HANSON NOTIFIED INFORMED, PROCEDURE CANCELLED PER MD AND BRING PT BACK TO FLOOR. UNABLE TO OBTAIN IV ACCESS. PT TRANSPORTED BACK TO FLOOR ON CARDIAC/TELE MONITOR WITHOUT INCIDENT. PT CONNECTED TO 02 2L NC.EPIC CUPID ANALYST AND PRIMARY RN AT BEDSIDE. BED LOW, CALL AZUL WITHIN REACH. REPORT GIVEN AT BEDSIDE. ALL QUESTIONS/CONCERNS ADDRESSED.
--- NOTE | 2019-07-11 15:21 | NUR ---
[PATIENT WAS TAKEN TO OR FOR A BRONCHOSCOPY CONSENT WAS SIGNED BY PLUG SAW OPERATOR. OR WAS INFORMED THAT TH PATIENT HAS NO IV ACCESS. BEFORE TAKING THE PATIENT DOWN, RAPID TRANSIT OPERATOR NURSE LEON TRIED TO INSERT AN IV, BUT WS UNSUCCESSFUL X2.
--- NOTE | 2019-07-11 16:13 | NUR ---
PATIENT CAME BACK TO THE UNIT. THE PROCEDURE WAS CANCELLED. OR NURSE COUNT GET IV ACCESS, AND WHILE TRYING, PT STARTED TO COMPLAIN OF CHEST PAIN. A CONSULT FOR CARDIOLOGY WAS PLACED, SO THE PATIENT CAN BE CLEARED BY CARDIO FOR BRONCHOSCOPY. POC EXPLAINED TO PATIENT. PATIENT IS STABLE, DENIES DISCOMFORT, ASKING FOR FAMILY MEMBER TO STAY OVERNIGHT. VISITING HR EXPLAINED TO PATIENT. PT INSIST THAT HE NEEDS SOMEONE TO PRESS HIS CALL LIGHT. WILL INFORM CHARGE NURSE.
--- NOTE | 2019-07-11 16:51 | NUR ---
DR ZAMORA CAME TO CHANGE THE SUPRAPUBIC CATHETER, HOWEVER PATIENT WAS HAVING MIDLINE PLACED AT HE SAME TIME. DR ZAMORA SPOKED TO PATIENT AND INFORMED HIM, SHE WILL BE BACK TOMORROW TO CHANGE THE SUPRAPUBIC CATHETER CATHETER.
[2019-07-11 16:59] VITALS: BP 129/79
--- NOTE | 2019-07-11 17:15 | NUR ---
Midline Placement: Patient educated on need for midline placement. All risks and benefits explained and all questions and concerns addresses prior to procedure. 20g/8cm midline inserted via right cephalic vein using Ultrasound. Sterile technique utilized. Blood return obtained from lumen and flushed easily with NS using proper technique. Midline secured with saline lock; biodisc and occlusive dressing applied. Primary RN notified. Midline lot # [id number]
[2019-07-11] MEDS: TAMSULOSIN HYDROCHLORIDE 0.4 MG CAP PO SCH (18:00)
--- NOTE | 2019-07-11 19:50 | NUR ---
PT DECLINED TO DO MED NEB TX VIA EZ PAP, STATES HE DOESN'T FEEL STRONG ENOUGH TO HOLD MOUTH PIECE AND PREFERS JUST THE AEROSOL MASK. Addendum: 07/11/19 at 3 by LJ RAMIREZ RT Amended: Links added.
--- NOTE | 2019-07-11 19:51 | NUR ---
CPT NOT GIVEN @ THIS TIME. ORDER IS FOR CPT TO BILATERAL LOWER LOBES PER DR. HANSON. PT IS UNABLE TO LAY FLAT AND TURN TO EITHER SIDE. COUGH IS DRY. NO DISTRESS NOTED.
[2019-07-11] MEDS: BACLOFEN 10 MG TAB PO PRN (20:48)
[2019-07-11 21:36] VITALS: BP 124/67
[2019-07-11 21:44] VITALS: BP 124/67
[2019-07-12] MEDS: ALBUTEROL SULF 2.5 MG/0.5ML(0.5%) NEB SOLN NEB SCH ×4 (00:31→20:04)
[2019-07-12] MEDS: IPRATROPIUM BROM 0.5 MG/2.5ML INH SOL NEB SCH ×4 (00:31→20:05)
[2019-07-12] MEDS: ACETYLCYSTEINE 10 %(100MG/ML) SOL 4ML NEB SCH ×4 (00:31→20:04)
[2019-07-12] MEDS: cefTAZidime 1 GM in SODIUM CHL 0.9% 50 ML IV SCH ×3 (00:48→18:12)
--- NOTE | 2019-07-12 04:05 | NUR ---
Assumed pt Care Assumed pt care from Mckenzie. Pt is currently laying in bed with no complaints at this time. Safety measures maintained with call light within reach, bed in lowest position and side rails up. Will continue to monitor for changes q1hr and prn.
[2019-07-12 05:34] VITALS: BP 143/68
[2019-07-12] MEDS: FERROUS SULFATE 325 MG TAB PO SCH ×3 (05:35→21:52)
[2019-07-12] MEDS: SIMETHICONE 80 MG CHEWABLE TABLET PO SCH ×4 (05:35→21:52)
[2019-07-12] MEDS: glipiZIDE 5 MG TAB PO SCH (06:23)
[2019-07-12] MEDS: InsuLIN REG 1unit/0.01ml Soln (100units/ml) SC SCH ×4 (06:23→21:53)
[2019-07-12] MEDS: ACCU-CHEK COMFORT CURVE STRIP VI SCH ×4 (06:23→21:53)
--- NOTE | 2019-07-12 07:30 | NUR ---
Opening Note Pt is a/ox4 with no s/s of distress or SOB. Pt is currently laying upright in bed with no complaints at this time. Pt is currently on 2L NC, colostomy is patent, and suprapubic catheter is present; free of kinks, draining to gravity. Discussed POC with pt; pending stress test today as well as echocardiogram; pt verbalized understanding. Safety measures maintained with call light within reach, bed in lowest position and side rails up. Will continue to monitor for changes q1hr and prn.
[2019-07-12] MEDS: Glucerna Carbsteady SHAKE Vanilla 8oz PO SCH ×3 (07:52→18:14)
[2019-07-12] MEDS: CARVEDILOL 12.5 MG TAB PO SCH ×2 (07:53→18:13)
[2019-07-12] MEDS ORDERED: ADENOSINE 77 MG in GIVE UN-DILUTED 0 ML IV STA (08:24)
[2019-07-12 09:00] VITALS: BP 145/74
--- NOTE | 2019-07-12 09:40 | NUR ---
Pt Off Unit for Stress Test Pt taken down to stress lab for Cardiolite via stretcher.
[2019-07-12] MEDS: SOD CHL 0.9%/ KCL 40MEQ 1,000 ML IV SCH ×2 (10:00→23:27)
--- NOTE | 2019-07-12 11:29 | NUR ---
Pt Back on Unit from Stress Lab Pt is a/ox4 with no s/s of distress. Safety measures maintained with call light within reach, bed in lowest position and side rails up. Will continue to monitor.
--- NOTE | 2019-07-12 11:40 | NUR ---
Dr Lakhani Called Requested/ quested about the possibility of further interventions to soaker helper in coughing. Will page RT to see if there are any further interventions. Addendum: 07/12/19 at 1400 by WOODY TOBIAS RN RN RT, Makenzie, stated that they do have an assitive device, but it is currently being used. Makenzie suggested that pt could try using a flutter valve with treatments; will notify MD of option. Will also continue to monitor. Addendum: 07/12/19 at 1519 by WOODY TOBIAS RN RN Attempted to contact Dr Lakhani, reached answering service and was unable to leave a message. Will attempt to reach MD again. Will continue to monitor.
[2019-07-12] MEDS: ENOXAPARIN SOD 40 MG/0.4 ML SYRINGE SC SCH (11:54)
[2019-07-12] MEDS: DOCUSATE SOD 100 MG CAP PO SCH ×2 (11:55→21:52)
[2019-07-12] MEDS: LISINOPRIL 20 MG TAB PO SCH (11:55)
[2019-07-12] MEDS: OXYBUTYNIN CHL 5 MG TAB PO SCH ×2 (11:55→21:52)
[2019-07-12] MEDS: LORATADINE 10 MG TAB PO SCH (11:55)
[2019-07-12] MEDS: PANTOPRAZOLE 40 MG TAB PO SCH (11:55)
[2019-07-12] MEDS: FLUTICASONE PROP NASAL SPR 0.05 % (50MCG) 16GM EACHNOSTRI SCH ×2 (11:56→21:52)
[2019-07-12] MEDS: CYANOCOBALAMIN 500 MCG TAB PO SCH (11:56)
[2019-07-12] MEDS: amLODIPine BESYLATE 5 MG TAB PO SCH (11:56)
[2019-07-12] MEDS: guaiFENesin-DM 100/10mg/5ml SYR PO PRN ×3 (11:57→22:39)
[2019-07-12 13:00] VITALS: BP 139/75
--- NOTE | 2019-07-12 13:15 | NUR ---
Patient Rounds Patient requested change of linens. All linens changed and patient was repositioned. Patient stated he is comfortable, no signs of distress at this time, O2 is at 2L nasal canula, respirations are even and unlabored; patient tolerated movement and turning without complications or report of shortness of breath. Call light is within reach and home caregiver is at bedside assisting with hygiene care. Will continue to monitor. Signed: 07/12/19 at 1352 by KALEIGH CHUNG SN <Co-Signature Required> Co-Signed: 07/12/19 at 1352 by WOODY TOBIAS RN RN
--- NOTE | 2019-07-12 14:20 | NUR ---
Respiratory note: PT REFUSED TO TAKE MEDNEB TX VIA EZ-PAP FOR BOTH Q6 TX. HE REQUESTED THAT HE RECEIVED HIS MEDNEB TX VIA MASK. PT GIVEN BOTH TX VIA MASK, WITH NO ADVERSE EFFECTS NOTED.
--- NOTE | 2019-07-12 16:46 | NUR ---
Report Given to Daryl All questions were answered. Pt is a/ox4 and no s/s of distress.
--- NOTE | 2019-07-12 16:50 | NUR ---
RECIEVED REPORT FROM SUSANA MCKAY.
[2019-07-12 17:25] VITALS: BP 139/75
[2019-07-12] MEDS: TAMSULOSIN HYDROCHLORIDE 0.4 MG CAP PO SCH (18:13)
[2019-07-12] MEDS: PROMETHAZINE HCL 25 MG/ML 1ML IV PRN (18:20)
--- NOTE | 2019-07-12 20:00 | NUR ---
Opening Shift Note Assumed care of patient, awake and alert. No S/S of distress/SOB or pain. Patient is on 3 liters of oxygen via nasal cannula. Respirations even and unlabored. Dressing to left medial glute is dry, clean, and intact. Barrier cream applied and new sacral Optifoam applied to patient's sacrum. Patient has on foam cradles on both feet. Patient refused placement of SCDs. Patient educated on purpose of SCDs to help prevent blood clots. Patient verbalized understanding and continued to refuse placement of SCDs. Patient's colostomy on left side of abdomen has no S/S of infection and has scant amount of brown, soft stool present. Trinh is patent and bag is below level of bladder; clear, pale urine draining. Instructed on POC and to call for assist PRN, will continue to monitor for changes Q1hr and PRN.
--- NOTE | 2019-07-12 20:04 | NUR ---
Respiratory note: PT IS REFUSING TO TAKE MED NEB TX VIA EZ-PAP AND REQUESTED TO CONTINUE TAKING TXS VIA MASK. RN AT BEDSIDE. WILL CONTINUE TO MONITOR.
--- NOTE | 2019-07-12 20:10 | NUR ---
PATIENT REFUSES TO RUN POTASSIUM AT MORE THAN 25 ML/HR PATIENT STATED HE DID NOT WANT POTASSIUM ANYMORE. PATIENT EDUCATED ON IMPORTANCE OF HAVING NORMAL POTASSIUM LEVEL. PATIENT VERBALIZED UNDERSTANDING. PATIENT AGREED TO LET POTASSIUM RUN AT 25 ML/HR.
[2019-07-12 21:50] VITALS: BP_SYST 134; BP_SYST 165; BP_DIAS 61; BP_DIAS 84
[2019-07-12] MEDS: SENNA 8.6 MG TAB PO SCH (21:53)
[2019-07-13] MEDS: ALBUTEROL SULF 2.5 MG/0.5ML(0.5%) NEB SOLN NEB SCH ×4 (00:58→18:16)
[2019-07-13] MEDS: IPRATROPIUM BROM 0.5 MG/2.5ML INH SOL NEB SCH ×3 (00:58→18:16)
[2019-07-13] MEDS: ACETYLCYSTEINE 10 %(100MG/ML) SOL 4ML NEB SCH ×3 (00:59→18:16)
[2019-07-13] MEDS: cefTAZidime 1 GM in SODIUM CHL 0.9% 50 ML IV SCH ×3 (02:03→18:38)
[2019-07-13] MEDS: ACETAMINOPHEN 500 MG TAB PO PRN ×2 (02:08→23:38)
--- NOTE | 2019-07-13 02:55 | NUR ---
PATIENT REFUSING TURN AND REPOSITION PATIENT REFUSES TO BE TURNED AND REPOSITIONED. PATIENT EDUCATED ON IMPORTANCE OF TURNING AND REPOSITIONING TO PREVENT PRESSURE SORES. PATIENT VERBALIZED UNDERSTANDING. PATIENT CONTINUES TO REFUSE.
--- NOTE | 2019-07-13 04:20 | NUR ---
COLOSTOMY BAG CHANGED AND LONG CARE DONE. PATIENT TOLERATED WELL.
[2019-07-13 04:44] VITALS: BP 117/70
[2019-07-13] MEDS: FERROUS SULFATE 325 MG TAB PO SCH ×3 (06:33→23:03)
[2019-07-13] MEDS: SIMETHICONE 80 MG CHEWABLE TABLET PO SCH ×4 (06:33→23:03)
[2019-07-13] MEDS: InsuLIN REG 1unit/0.01ml Soln (100units/ml) SC SCH ×4 (06:43→22:00)
[2019-07-13] MEDS: ACCU-CHEK COMFORT CURVE STRIP VI SCH ×4 (06:43→22:00)
[2019-07-13] MEDS: glipiZIDE 5 MG TAB PO SCH (06:43)
--- NOTE | 2019-07-13 06:45 | NUR ---
PATIENT REQUESTED TO STOP POTASSIUM FROM RUNNING PATIENT REFUSING POTASSIUM ADMINISTRATION. PATIENT EDUCATED REGARDING IMPORTANCE OF POTASSIUM FOR NORMAL HEART FUNCTION. PATIENT VERBALIZED UNDERSTANDING AND CONTINUES TO REFUSE POTASSIUM.
--- NOTE | 2019-07-13 06:50 | NUR ---
PATIENT'S LONG IRRIGATED WITH 60 ML OF NS PER MD ORDER. PATIENT TOLERATED WELL.
--- NOTE | 2019-07-13 07:00 | NUR ---
CLOSING NOTE No S/S of distress/SOB or pain. Patient is on 3 liters of oxygen via nasal cannula. Respirations even and unlabored.
[2019-07-13] MEDS: guaiFENesin-DM 100/10mg/5ml SYR PO PRN ×3 (07:23→23:38)
[2019-07-13] MEDS: Glucerna Carbsteady SHAKE Vanilla 8oz PO SCH ×3 (08:00→18:40)
--- NOTE | 2019-07-13 08:00 | NUR ---
OPENING SHIFT NOTE: PATIENT RESTING IN BED LOW FOWLERS. ON NC 3L. NO S/S OF RESPIRATORY DISTRESS. PATIENT DENIES ANY PAIN. PATIENT ROOM WIPED DOWN AND ALL TRASH CLEANED BY PATIENT REQUEST. THIS RN WASHED PATIENTS FACE AND ASSISTED WITH EATING. NO S/S OF ASPIRATION AFTER MEAL. BED IN LOWEST LOCKED POSITION WITH CALL BUTTON WITHIN REACH. WILL CONTINUE CARE.
[2019-07-13] MEDS: ENOXAPARIN SOD 40 MG/0.4 ML SYRINGE SC SCH (08:46)
[2019-07-13] MEDS: PANTOPRAZOLE 40 MG TAB PO SCH (08:48)
[2019-07-13] MEDS: DOCUSATE SOD 100 MG CAP PO SCH ×2 (08:48→23:02)
[2019-07-13] MEDS: OXYBUTYNIN CHL 5 MG TAB PO SCH ×2 (08:49→23:03)
[2019-07-13] MEDS: CARVEDILOL 12.5 MG TAB PO SCH ×2 (08:50→18:39)
[2019-07-13] MEDS: LISINOPRIL 20 MG TAB PO SCH (08:51)
[2019-07-13] MEDS: amLODIPine BESYLATE 5 MG TAB PO SCH (08:52)
[2019-07-13] MEDS: CYANOCOBALAMIN 500 MCG TAB PO SCH (08:52)
[2019-07-13] MEDS: FLUTICASONE PROP NASAL SPR 0.05 % (50MCG) 16GM EACHNOSTRI SCH ×2 (08:53→23:07)
[2019-07-13] MEDS: LORATADINE 10 MG TAB PO SCH (08:53)
[2019-07-13 09:16] VITALS: BP 125/66
[2019-07-13] MEDS: SOD CHL 0.9%/ KCL 40MEQ 1,000 ML IV SCH (12:42)
[2019-07-13 13:34] VITALS: BP 130/68
[2019-07-13 13:50] LABS: Anion Gap 10 (5-15); BUN/Creatinine Ratio 22.9; Blood Urea Nitrogen 8 mg/dL (7-18); Calcium 8.3 mg/dL (8.5-10.1); Carbon Dioxide 27 mmol/L (21-32); Chloride 100 mmol/L (98-107); GFR African American 336 mL/min; GFR Non-African American 278 mL/min; Glucose 122 mg/dL (74-106); Sodium 137 mmol/L (136-145)
[2019-07-13] MEDS ORDERED: POTASSIUM CHL 20 Meq TABLET PO ONE (15:15)
--- NOTE | 2019-07-13 16:47 | NUR ---
Nutrition Follow-up Notes Wt.: 98.5 kg s of yesterday. Pt's on oxygen via nasal cannula, denies any discomfort during rounds this morning. Pt states that he used to weigh around 185 lbs, most likely lost weight d/t decreased food intake r/t not feeling well few days captain's assistant. Pt's diabetic, takes oral DM meds, with insulin shots 2x daily, usually has fair appetite, tries to eat meals regularly, NKFA and tries to follow low salt and sugar diets captain's assistant. Pt's currently on Regular diet with Glucerna Shakes 1 carton TID, has fair PO intake aeb 70% ave. consumed meals (x6) in last 2.5 days. Noted pt's for active Cardiology consult. Est. Needs based on AdBW (80 kg): 1600 kcal to 2000 kcal (20-25 kcal/kgAdBW), 80 gms to 96 gms pro (1.0-1.2 gms/kgAdBW). Will continue to monitor pertinent labs and reassess nutrient need prn Labs: Gluc 122 H, K 3.1 L, Ca 8.3 L, Cr 0.35 L; Alb 2.9 L, HbA1c 6.9 H Skin: Chicho scale 14, mod risk, pt's sacrum w/ scars per front end loader operator. GI: Pt had 4 ml stool output this morning per front end loader operator. PES: Altered nutrition related lab values r/t current/chronic medical condition aeb hyperglycemia, hyperchloremia, hypocalcemia, elev. HbA1c, mod hypoalbuminemia Obesity r/t food intake more than body requirement aeb 191% IBW, BMI 4.07 kg/m2 and increased body adiposity Will continue to monitor PO intake, skin status, pertinent labs and weight trend. F/u in 3 to 5 days. Rec.: 1.) Consider Consistent Standard Carb: 60 gms/meal diet. 2.) If Albumin continues trending down, consider Prostat 1 pkt BID. 3.) Continue close supervision and feeding assistance prn with meals. 4.) Refer to CDE/RD for further nutrition educ. and weight monitoring upon discharge. 5.) Continue current plan of care.
[2019-07-13 17:19] VITALS: BP 127/70
[2019-07-13] MEDS: TAMSULOSIN HYDROCHLORIDE 0.4 MG CAP PO SCH (18:38)
[2019-07-13 20:00] VITALS: BP 127/70
--- NOTE | 2019-07-13 20:30 | NUR ---
PT TURNED AND REPOSITIONED.SPECIAL CALL LIGHT IN REACH OF LEFT HAND AND PT DEMONSTRATES ITS USE WELL. LONG INTACT. PT DENIES ANY DISCOMFORT OR PAIN AT THIS TIME.
[2019-07-13 22:16] VITALS: BP 131/52
--- NOTE | 2019-07-13 23:00 | NUR ---
PT TURNED AND REPOSITIONED.
[2019-07-13] MEDS: SENNA 8.6 MG TAB PO SCH (23:02)
[2019-07-14] MEDS: IPRATROPIUM BROM 0.5 MG/2.5ML INH SOL NEB SCH ×4 (00:31→20:00)
[2019-07-14] MEDS: ALBUTEROL SULF 2.5 MG/0.5ML(0.5%) NEB SOLN NEB SCH ×4 (00:31→20:01)
[2019-07-14] MEDS: ACETYLCYSTEINE 10 %(100MG/ML) SOL 4ML NEB SCH ×4 (00:31→20:01)
--- NOTE | 2019-07-14 01:40 | NUR ---
PT TURNED AND REPOSITIONED.
[2019-07-14] MEDS: SOD CHL 0.9%/ KCL 40MEQ 1,000 ML IV SCH ×2 (02:00→15:20)
[2019-07-14] MEDS: cefTAZidime 1 GM in SODIUM CHL 0.9% 50 ML IV SCH ×3 (03:01→17:49)
--- NOTE | 2019-07-14 03:40 | NUR ---
PT TURNED AND REPOSITIONED.
[2019-07-14 05:47] VITALS: BP 140/74
--- NOTE | 2019-07-14 06:00 | NUR ---
PT TURNED AND REPOSITIONED.
[2019-07-14] MEDS: InsuLIN REG 1unit/0.01ml Soln (100units/ml) SC SCH ×4 (07:26→22:08)
[2019-07-14] MEDS: ACCU-CHEK COMFORT CURVE STRIP VI SCH ×4 (07:26→22:07)
[2019-07-14] MEDS: glipiZIDE 5 MG TAB PO SCH (07:33)
[2019-07-14] MEDS: SIMETHICONE 80 MG CHEWABLE TABLET PO SCH ×4 (07:33→22:07)
[2019-07-14] MEDS: FERROUS SULFATE 325 MG TAB PO SCH ×3 (07:34→22:07)
[2019-07-14 09:00] VITALS: BP 135/74
[2019-07-14] MEDS: LORATADINE 10 MG TAB PO SCH (09:13)
[2019-07-14] MEDS: DOCUSATE SOD 100 MG CAP PO SCH ×2 (09:13→22:07)
[2019-07-14] MEDS: ENOXAPARIN SOD 40 MG/0.4 ML SYRINGE SC SCH (09:13)
[2019-07-14] MEDS: CYANOCOBALAMIN 500 MCG TAB PO SCH (09:14)
[2019-07-14] MEDS: LISINOPRIL 20 MG TAB PO SCH (09:14)
[2019-07-14] MEDS: PANTOPRAZOLE 40 MG TAB PO SCH (09:14)
[2019-07-14] MEDS: amLODIPine BESYLATE 5 MG TAB PO SCH (09:15)
[2019-07-14] MEDS: OXYBUTYNIN CHL 5 MG TAB PO SCH ×2 (09:15→22:07)
[2019-07-14] MEDS: CARVEDILOL 12.5 MG TAB PO SCH ×2 (09:15→17:50)
[2019-07-14] MEDS: Glucerna Carbsteady SHAKE Vanilla 8oz PO SCH ×3 (09:16→19:24)
[2019-07-14] MEDS: FLUTICASONE PROP NASAL SPR 0.05 % (50MCG) 16GM EACHNOSTRI SCH ×2 (09:16→22:04)
[2019-07-14] MEDS: PROMETHAZINE HCL 25 MG/ML 1ML IV PRN (09:26)
--- NOTE | 2019-07-14 11:38 | NUR ---
WOUND CARE NOTE: Wound care in to see patient for skin integrity monitoring. Patient is resting in bed in Rm. 277A. Patient is awake, alert and able to verbalize needs. He's in no stated pain at this time. His Chicho score is 14. Skin assessment done with the assistance of patient's nurse, SUSNAA Colon. Patient remain wound free other than intact collagen scars to sacrum, Lower buttocks/thighs from old previous pressure injuries. Patient is receiving BID/PRN cleaning and application of Barrier cream to sacral, buttocks as preventative per MD order. New photograph of multiple intact collagen scars are taken for reference. Patient tolerated skin examination well, repositioned for comfort facing his left side, redistributed pressure points with pillows. RECOMMENDATION: Continuation of all wound care orders prescribed by MD, continue with skin/wound preventative plan of care, continue monitoring by wound care while patient is hospitalized. Addendum: 07/14/19 at 1613 by Britany Vasquez RN Amended: Links added.
--- NOTE | 2019-07-14 12:35 | NUR ---
AIR MATTRESS: Air mattress reorder at [facility], Ref# [id number]; ETA [id number]. Call [facility] if needed to follow up at [phone].
[2019-07-14 13:00] VITALS: BP 143/73
[2019-07-14] MEDS: ACETAMINOPHEN 500 MG TAB PO PRN (13:49)
[2019-07-14] MEDS: guaiFENesin-DM 100/10mg/5ml SYR PO PRN ×2 (13:49→22:06)
[2019-07-14 17:00] VITALS: BP 123/73
[2019-07-14] MEDS: TAMSULOSIN HYDROCHLORIDE 0.4 MG CAP PO SCH (17:50)
--- NOTE | 2019-07-14 20:01 | NUR ---
GIVEN W/ EZPAP W/ PRESSURE OF 15, PT TOLERATED WELL Addendum: 07/14/19 at 2018 by LJ RAMIREZ RT Amended: Links added.
[2019-07-14 21:53] VITALS: BP 109/71
[2019-07-14] MEDS: SENNA 8.6 MG TAB PO SCH (22:07)
[2019-07-15] MEDS: ALBUTEROL SULF 2.5 MG/0.5ML(0.5%) NEB SOLN NEB SCH ×5 (01:20→23:53)
[2019-07-15] MEDS: ACETYLCYSTEINE 10 %(100MG/ML) SOL 4ML NEB SCH ×5 (01:20→23:52)
--- NOTE | 2019-07-15 01:20 | NUR ---
GIVEN W/ EZPAP, PRESSURE PF 15. PT TOLERATED IT WELL Addendum: 07/15/19 at 0158 by LJ RAMIREZ RT Amended: Links added.
[2019-07-15] MEDS: IPRATROPIUM BROM 0.5 MG/2.5ML INH SOL NEB SCH ×5 (01:21→23:53)
[2019-07-15] MEDS: cefTAZidime 1 GM in SODIUM CHL 0.9% 50 ML IV SCH ×3 (01:54→18:13)
[2019-07-15 04:51] VITALS: BP 150/76
[2019-07-15] MEDS: SIMETHICONE 80 MG CHEWABLE TABLET PO SCH ×4 (05:55→22:28)
[2019-07-15] MEDS: FERROUS SULFATE 325 MG TAB PO SCH ×3 (05:55→22:27)
[2019-07-15] MEDS: ACCU-CHEK COMFORT CURVE STRIP VI SCH ×4 (06:25→22:29)
[2019-07-15] MEDS: glipiZIDE 5 MG TAB PO SCH (06:25)
[2019-07-15] MEDS: InsuLIN REG 1unit/0.01ml Soln (100units/ml) SC SCH ×4 (06:25→22:00)
--- NOTE | 2019-07-15 07:15 | NUR ---
Opening Shift Note Assumed care of patient, awake and alert. No S/S of distress/SOB or pain. Instructed on POC,Nursing routines and turning q 2 hours,call light within reach patient reminded instructed to call for assistance,patient verbalized understanding .will continue to monitor for changes Q1hr and PRN, needs attended.
[2019-07-15] MEDS: Glucerna Carbsteady SHAKE Vanilla 8oz PO SCH ×3 (08:00→18:00)
[2019-07-15] MEDS: CARVEDILOL 12.5 MG TAB PO SCH ×2 (08:00→18:30)
[2019-07-15 09:00] VITALS: BP 149/77
[2019-07-15] MEDS: OXYBUTYNIN CHL 5 MG TAB PO SCH ×2 (10:00→22:28)
[2019-07-15] MEDS: LISINOPRIL 20 MG TAB PO SCH (10:00)
[2019-07-15] MEDS: CYANOCOBALAMIN 500 MCG TAB PO SCH (10:00)
[2019-07-15] MEDS: LORATADINE 10 MG TAB PO SCH (10:00)
[2019-07-15] MEDS: amLODIPine BESYLATE 5 MG TAB PO SCH (10:00)
[2019-07-15] MEDS: DOCUSATE SOD 100 MG CAP PO SCH ×2 (10:00→22:28)
[2019-07-15] MEDS: PANTOPRAZOLE 40 MG TAB PO SCH (10:00)
[2019-07-15] MEDS: ENOXAPARIN SOD 40 MG/0.4 ML SYRINGE SC SCH (10:00)
--- NOTE | 2019-07-15 11:22 | NUR ---
CALLED DR. HANSON AT [phone] INFORMED PATIENT IS CARDIAC CLEAR FOR BRONCHOSCOPY RECEIVED ORDER AND INSTRUCTION TO CALL OPERATING ROOM TO SCHEDULE PATIENT THIS AFTERNOON FOR BRONCHOSCOPY.
[2019-07-15] MEDS: SOD CHL 0.9%/ KCL 40MEQ 1,000 ML IV SCH ×3 (11:30→18:34)
[2019-07-15] MEDS: FLUTICASONE PROP NASAL SPR 0.05 % (50MCG) 16GM EACHNOSTRI SCH ×2 (11:30→22:29)
--- NOTE | 2019-07-15 11:55 | NUR ---
CALLED OR SPOKE TO KAYLA PATIENT SCHEDULED FOR BRONCHOSCOPY BETWEEN [phone]
--- NOTE | 2019-07-15 11:59 | NUR ---
CALLED AND INFORMED DR. HANSON PATIENT SCHEDULED FOR BRONCHOSCOPY BETWEEN [phone]
[2019-07-15 13:00] VITALS: BP 144/68
[2019-07-15] MEDS ORDERED: SODIUM CHLORIDE LOCK 0 ML ONE (13:00)
[2019-07-15] MEDS ORDERED: LIDOCAINE 2%HCL (LOCAL ANESTH.) INJ 20ML MDV ONE (13:00)
[2019-07-15] MEDS ORDERED: fentaNYL CITRATE 100 MCG/2 ML VL ONE (13:01)
[2019-07-15] MEDS ORDERED: EPINEPHrine HCL 1 MG/1 ML AMP ONE (13:01)
[2019-07-15] MEDS ORDERED: LIDOCAINE HCL 2% TOP JELLY 5ML TOP ONE ×2 (13:01→14:54)
[2019-07-15] MEDS ORDERED: MIDAZOLAM HCL 5 MG/ML-1ML VIAL ONE (13:01)
[2019-07-15 13:35] LABS: INR 1.07 (0.9-1.15); Partial Thromboplastin Time 26.7 sec (23.64-32.05)
--- NOTE | 2019-07-15 13:50 | NUR ---
TO OPS HOLD/OR VIA BED ACCOMPANIED BY TELE STAFF FOR BRONCHOSCOPY
[2019-07-15] MEDS ORDERED: SODIUM CHLORIDE LOCK 10 ML ONE ×2 (13:55→14:22)
[2019-07-15] MEDS ORDERED: ACETYLCYSTEINE 10 %(100MG/ML) SOL 4ML NEB ONE ×2 (14:00)
[2019-07-15] MEDS: fentaNYL CITRATE 100 MCG/2 ML VL ONE ×2 (14:39→15:05)
--- NOTE | 2019-07-15 17:00 | NUR ---
Patient out for procedure for 1700 vitals & I&O.-EW
--- NOTE | 2019-07-15 18:00 | NUR ---
RECEIVED FROM PACU S/P BRONCHOSCOPY,COUGHING PRODUCTIVE SECRETION,SUCTIONED ,VITAL SIGNS TAKEN BP 112/58.HR 64,TEMP:97.4 RR22,PATIENT ENCOURAGE TO COUGH AND DEEP BREATH,OXYMIZER IN USE AT 5 LITERS OXYMIZER O2 SAT 94%.
[2019-07-15] MEDS: ACETAMINOPHEN 500 MG TAB PO PRN (18:34)
[2019-07-15] MEDS: TAMSULOSIN HYDROCHLORIDE 0.4 MG CAP PO SCH (18:34)
--- NOTE | 2019-07-15 19:01 | NUR ---
STATUS UNCHANGED,NO DISTRESS, VISITOR AT BEDSIDE
--- NOTE | 2019-07-15 19:15 | NUR ---
Opening Shift Note Received patient from Brionna MEZA. Assumed care of patient, awake and alert, caregiver at bedside. No S/S of distress/SOB or pain. Instructed on POC and to call for assist PRN. Fall precaution measures in place, will continue to monitor for changes Q1hr and PRN.
--- NOTE | 2019-07-15 20:25 | NUR ---
Dr. Lauren saw patient for Neuro consult.
[2019-07-15 20:59] VITALS: BP 112/58
[2019-07-15 22:00] VITALS: BP 140/92
[2019-07-15] MEDS: SENNA 8.6 MG TAB PO SCH (22:27)
--- NOTE | 2019-07-15 23:40 | NUR ---
RT NOTE: PAGED TO PT ROOM, PT HAVING TROUBLE REMOVING SECRETIONS. PT NTS X2 RIGHT NARE AND TOLERATED WELL. MODERATE AMOUNT OF SEMI THICK YELLOW SECRETIONS. MED NEB TX GIVEN VIA ACCUPAP [id number] AND CPT IN UPPER LOBES. PT ABLE TO COUGH UP SECRETIONS AND REMOVED WITH YONKERS ORALLY. NO DISTRESS NOTED.
[2019-07-16] MEDS: cefTAZidime 1 GM in SODIUM CHL 0.9% 50 ML IV SCH ×3 (01:58→17:33)
--- NOTE | 2019-07-16 04:30 | NUR ---
Total care done.
[2019-07-16 05:39] VITALS: BP 148/75
[2019-07-16] MEDS: IPRATROPIUM BROM 0.5 MG/2.5ML INH SOL NEB SCH ×3 (06:42→18:34)
[2019-07-16] MEDS: ALBUTEROL SULF 2.5 MG/0.5ML(0.5%) NEB SOLN NEB SCH ×3 (06:42→18:34)
[2019-07-16] MEDS: ACETYLCYSTEINE 20%(200MG/ML) SOL 4ML NEB SCH ×3 (06:42→18:34)
[2019-07-16] MEDS: InsuLIN REG 1unit/0.01ml Soln (100units/ml) SC SCH ×4 (07:00→22:23)
[2019-07-16] MEDS: glipiZIDE 5 MG TAB PO SCH (07:05)
[2019-07-16] MEDS: SIMETHICONE 80 MG CHEWABLE TABLET PO SCH ×4 (07:05→22:22)
[2019-07-16] MEDS: FERROUS SULFATE 325 MG TAB PO SCH ×3 (07:05→22:22)
[2019-07-16] MEDS: ACCU-CHEK COMFORT CURVE STRIP VI SCH ×4 (07:06→22:23)
--- NOTE | 2019-07-16 07:40 | NUR ---
Opening Shift Note Assumed care of patient, awake and alert eating his breakfast with help from aide. No S/S of distress/SOB or pain. Instructed on POC and to call for assist PRN, will continue to monitor for changes Q1hr and PRN.
[2019-07-16] MEDS: CARVEDILOL 12.5 MG TAB PO SCH ×2 (08:00→17:32)
[2019-07-16] MEDS: Glucerna Carbsteady SHAKE Vanilla 8oz PO SCH ×3 (08:00→18:57)
--- NOTE | 2019-07-16 08:03 | NUR ---
Dr. Lauren at bedside Discussing plan of care with patient and this RN. No new orders received. Will continue to monitor Q1 hour and PRN.
--- NOTE | 2019-07-16 08:11 | NUR ---
Pt off unit left in his bed to an EEG. Pt tolerated transfer out of unit fine.
[2019-07-16 08:49] LABS: Basophils # (auto) 0.1 uL; Basophils % (auto) 0.6 % (0.0-2.0); Eosinophils # (auto) 0.1 uL; Eosinophils % (auto) 1.2 % (0.0-7.0); Hematocrit 37.1 % (41.0-53.0); Hemoglobin 12.3 g/dL (13.5-17.5); Lymphocytes # (auto) 0.9 uL; Lymphocytes % (auto) 7.9 % (10.0-50.0); Mean Corpuscular Hemoglobin 29.8 pg (28.0-32.0); Mean Corpuscular Hgb Conc. 33.2 g/dL (32.0-36.0); Mean Corpuscular Volume 89.7 fL (80.0-100.0); Monocytes # (auto) 0.6 uL; Monocytes % (auto) 5.9 % (0.0-12.0); Neutrophils # (auto) 9.2 uL; Neutrophils % (auto) 84.4 % (37.0-80.0); Platelet Count (auto) 229 10^3/uL (140-450); Red Blood Cells 4.14 10^6/uL (4.5-5.90); Red Cell Distribution Width 15.3 % (11.8-14.3); White Blood Cell 10.9 10^3/uL (4.4-10.8)
[2019-07-16 09:00] VITALS: BP 131/81
[2019-07-16 09:08] LABS: Albumin 2.8 g/dL (3.4-5.0); Calcium 8.7 mg/dL (8.5-10.1); Potassium 3.8 mmol/L (3.5-5.1)
[2019-07-16 09:11] LABS: BUN/Creatinine Ratio 18.2; Bilirubin, Total 0.4 mg/dL (0.2-1.0); Total Protein 7.2 g/dL (6.4-8.2)
[2019-07-16] MEDS: PANTOPRAZOLE 40 MG TAB PO SCH (10:22)
[2019-07-16] MEDS: amLODIPine BESYLATE 5 MG TAB PO SCH (10:23)
[2019-07-16] MEDS: LISINOPRIL 20 MG TAB PO SCH (10:24)
[2019-07-16] MEDS: DOCUSATE SOD 100 MG CAP PO SCH ×2 (10:24→22:22)
[2019-07-16] MEDS: LORATADINE 10 MG TAB PO SCH (10:24)
[2019-07-16] MEDS: OXYBUTYNIN CHL 5 MG TAB PO SCH ×2 (10:24→22:22)
[2019-07-16] MEDS: ENOXAPARIN SOD 40 MG/0.4 ML SYRINGE SC SCH (10:25)
[2019-07-16] MEDS: CYANOCOBALAMIN 500 MCG TAB PO SCH (10:25)
[2019-07-16] MEDS: FLUTICASONE PROP NASAL SPR 0.05 % (50MCG) 16GM EACHNOSTRI SCH ×2 (10:25→22:23)
[2019-07-16] MEDS: guaiFENesin-DM 100/10mg/5ml SYR PO PRN (10:26)
[2019-07-16] MEDS: ACETAMINOPHEN 500 MG TAB PO PRN (10:26)
[2019-07-16 13:00] VITALS: BP 141/80
--- NOTE | 2019-07-16 13:05 | NUR ---
EEG in progress at bedside
--- NOTE | 2019-07-16 13:20 | NUR ---
Dr. Davidson at bedside. No new orders. Discussed plan of care with patient.
--- NOTE | 2019-07-16 16:31 | NUR ---
Dr. Lakhani at bedside Discussing plan of care with patient. New order received for DME cough assistive device fro home. Will place new order. Addendum: 07/16/19 at 1850 by SASHA SEAMAN RN RN wrong time, Dr. Lakhani at bedside at 2476
--- NOTE | 2019-07-16 16:50 | NUR ---
Page out to Maribel Grider regarding patient home health arrangements. No discharge order at this time. Patient states he was previous was on [facility]. Awaiting call back.
--- NOTE | 2019-07-16 16:58 | NUR ---
Spoke to Maribel Updated on patient status and no discharge orders at this time. [facility] transportation to be placed on will call.
[2019-07-16 17:00] VITALS: BP 125/82
[2019-07-16] MEDS: SOD CHL 0.9%/ KCL 40MEQ 1,000 ML IV SCH ×2 (17:31→20:40)
[2019-07-16] MEDS: TAMSULOSIN HYDROCHLORIDE 0.4 MG CAP PO SCH (17:32)
--- NOTE | 2019-07-16 19:10 | NUR ---
Closing Note Report given to night warehouse selector RN. No signs or symptoms of distress noted at this time.
--- NOTE | 2019-07-16 19:40 | NUR ---
Opening Shift Note Received report and assumed care of patient. Patient is awake and alert. No signs or symptoms of distress noted, patient currently denies pain. Instructed patient on plan of care and to call for assistance as needed, specialty call light within reach. Will continue to monitor.
[2019-07-16 22:00] VITALS: BP 115/66
[2019-07-16] MEDS: SENNA 8.6 MG TAB PO SCH (22:22)
[2019-07-17] MEDS: IPRATROPIUM BROM 0.5 MG/2.5ML INH SOL NEB SCH ×4 (00:26→19:08)
[2019-07-17] MEDS: ALBUTEROL SULF 2.5 MG/0.5ML(0.5%) NEB SOLN NEB SCH ×4 (00:26→19:08)
[2019-07-17] MEDS: ACETYLCYSTEINE 20%(200MG/ML) SOL 4ML NEB SCH ×4 (00:27→19:09)
[2019-07-17] MEDS: cefTAZidime 1 GM in SODIUM CHL 0.9% 50 ML IV SCH ×3 (02:13→18:25)
[2019-07-17 05:00] VITALS: BP 135/81
[2019-07-17] MEDS: guaiFENesin-DM 100/10mg/5ml SYR PO PRN (05:08)
[2019-07-17 06:43] LABS: Basophils # (auto) 0 uL; Basophils % (auto) 0.5 % (0.0-2.0); Eosinophils # (auto) 0.2 uL; Hematocrit 35.1 % (41.0-53.0); Hemoglobin 11.9 g/dL (13.5-17.5); Lymphocytes # (auto) 0.7 uL; Lymphocytes % (auto) 7.9 % (10.0-50.0); Mean Corpuscular Hgb Conc. 33.9 g/dL (32.0-36.0); Mean Corpuscular Volume 88.3 fL (80.0-100.0); Monocytes # (auto) 0.5 uL; Monocytes % (auto) 5.8 % (0.0-12.0); Neutrophils # (auto) 7.6 uL; Neutrophils % (auto) 83.8 % (37.0-80.0); Platelet Count (auto) 227 10^3/uL (140-450); Red Blood Cells 3.97 10^6/uL (4.5-5.90); Red Cell Distribution Width 14.9 % (11.8-14.3); White Blood Cell 9.1 10^3/uL (4.4-10.8)
[2019-07-17] MEDS: FERROUS SULFATE 325 MG TAB PO SCH ×3 (06:51→22:00)
[2019-07-17] MEDS: glipiZIDE 5 MG TAB PO SCH (06:51)
[2019-07-17] MEDS: InsuLIN REG 1unit/0.01ml Soln (100units/ml) SC SCH ×4 (06:52→22:00)
[2019-07-17] MEDS: SIMETHICONE 80 MG CHEWABLE TABLET PO SCH ×4 (06:52→22:00)
[2019-07-17] MEDS: ACCU-CHEK COMFORT CURVE STRIP VI SCH ×4 (06:52→22:09)
[2019-07-17 07:05] LABS: Calcium 8.8 mg/dL (8.5-10.1); Potassium 3.7 mmol/L (3.5-5.1)
[2019-07-17 07:07] LABS: BUN/Creatinine Ratio 18.4
[2019-07-17 08:00] VITALS: BP 107/74
[2019-07-17] MEDS: FLUTICASONE PROP NASAL SPR 0.05 % (50MCG) 16GM EACHNOSTRI SCH ×2 (10:06→22:10)
[2019-07-17] MEDS: OXYBUTYNIN CHL 5 MG TAB PO SCH ×2 (10:07→22:01)
[2019-07-17] MEDS: LORATADINE 10 MG TAB PO SCH (10:07)
[2019-07-17] MEDS: ENOXAPARIN SOD 40 MG/0.4 ML SYRINGE SC SCH (10:07)
[2019-07-17] MEDS: PANTOPRAZOLE 40 MG TAB PO SCH (10:07)
[2019-07-17] MEDS: DOCUSATE SOD 100 MG CAP PO SCH ×2 (10:07→22:01)
[2019-07-17] MEDS: CYANOCOBALAMIN 500 MCG TAB PO SCH (10:08)
[2019-07-17] MEDS: LISINOPRIL 20 MG TAB PO SCH (10:08)
[2019-07-17] MEDS: amLODIPine BESYLATE 5 MG TAB PO SCH (10:09)
[2019-07-17] MEDS: CARVEDILOL 12.5 MG TAB PO SCH ×2 (10:09→18:27)
[2019-07-17] MEDS: Glucerna Carbsteady SHAKE Vanilla 8oz PO SCH ×3 (10:10→18:27)
[2019-07-17] MEDS: SOD CHL 0.9%/ KCL 40MEQ 1,000 ML IV SCH ×2 (10:25→23:20)
[2019-07-17 12:00] VITALS: BP 103/70
--- NOTE | 2019-07-17 15:45 | NUR ---
LEFT LOWER BUTTOCK SCAR CLEANSED AND PROTECTIVE BARRIER-GUARD APPLIED. COLOSTOMY BAG DRAINED AND CLEANED. PT TOLERATED PROCEDURE WELL. CALL LIGHT WITHIN REACH. WILL CONTINUE TO MONITOR.
--- NOTE | 2019-07-17 15:50 | NUR ---
DR. HANSON IN TO SEE PT. PT IN AGREEMENT WITH PLAN OF CARE. PLANNING ON BRONCHOSCOPY ON 07/18/19- PT AWARE.
[2019-07-17 17:00] VITALS: BP 112/79
[2019-07-17] MEDS: TAMSULOSIN HYDROCHLORIDE 0.4 MG CAP PO SCH (18:26)
--- NOTE | 2019-07-17 19:03 | NUR ---
CONSENT TO PROCEDURE WITNESSED.
[2019-07-17] MEDS: BACLOFEN 10 MG TAB PO PRN (21:59)
[2019-07-17 22:00] VITALS: BP 133/78
[2019-07-17] MEDS: SENNA 8.6 MG TAB PO SCH (22:00)
[2019-07-18] MEDS: SOD CHL 0.9%/ KCL 40MEQ 1,000 ML IV SCH ×2 (00:05→20:05)
[2019-07-18] MEDS: ALBUTEROL SULF 2.5 MG/0.5ML(0.5%) NEB SOLN NEB SCH ×4 (00:10→17:42)
[2019-07-18] MEDS: IPRATROPIUM BROM 0.5 MG/2.5ML INH SOL NEB SCH ×4 (00:10→17:41)
[2019-07-18] MEDS: ACETYLCYSTEINE 20%(200MG/ML) SOL 4ML NEB SCH ×4 (00:11→17:42)
[2019-07-18] MEDS: cefTAZidime 1 GM in SODIUM CHL 0.9% 50 ML IV SCH ×3 (02:00→19:06)
[2019-07-18] MEDS: glipiZIDE 5 MG TAB PO SCH (03:54)
[2019-07-18] MEDS: SIMETHICONE 80 MG CHEWABLE TABLET PO SCH ×4 (03:54→22:52)
[2019-07-18] MEDS: FERROUS SULFATE 325 MG TAB PO SCH ×3 (03:54→22:54)
[2019-07-18 05:00] VITALS: BP 153/84
[2019-07-18] MEDS: InsuLIN REG 1unit/0.01ml Soln (100units/ml) SC SCH ×4 (05:49→22:00)
[2019-07-18] MEDS: ACCU-CHEK COMFORT CURVE STRIP VI SCH ×4 (05:50→22:55)
[2019-07-18 07:11] LABS: Basophils # (auto) 0 uL; Basophils % (auto) 0.3 % (0.0-2.0); Eosinophils # (auto) 0.1 uL; Eosinophils % (auto) 2.1 % (0.0-7.0); Hematocrit 35.9 % (41.0-53.0); Hemoglobin 11.9 g/dL (13.5-17.5); Lymphocytes # (auto) 0.6 uL; Lymphocytes % (auto) 10.1 % (10.0-50.0); Mean Corpuscular Hemoglobin 29.5 pg (28.0-32.0); Mean Corpuscular Hgb Conc. 33.1 g/dL (32.0-36.0); Mean Corpuscular Volume 89.2 fL (80.0-100.0); Monocytes # (auto) 0.6 uL; Monocytes % (auto) 9.9 % (0.0-12.0); Neutrophils # (auto) 4.7 uL; Neutrophils % (auto) 77.6 % (37.0-80.0); Nucleated Red Blood Cells % 0.1 %; Platelet Count (auto) 230 10^3/uL (140-450); Red Blood Cells 4.03 10^6/uL (4.5-5.90); Red Cell Distribution Width 15.2 % (11.8-14.3)
[2019-07-18 07:23] LABS: Albumin 2.6 g/dL (3.4-5.0); Calcium 8.3 mg/dL (8.5-10.1); Potassium 4.2 mmol/L (3.5-5.1)
[2019-07-18 07:26] LABS: BUN/Creatinine Ratio 13.9
[2019-07-18 07:29] LABS: Bilirubin, Total 0.4 mg/dL (0.2-1.0); Total Protein 7.5 g/dL (6.4-8.2)
--- NOTE | 2019-07-18 07:45 | NUR ---
Opening Shift Note Assumed care of patient, awake and alert. No S/S of distress/SOB or pain. Patient npo for bronchoscopy today and patient is aware. Instructed on POC and to call for assist PRN, will continue to monitor for changes Q1hr and PRN.
[2019-07-18 08:00] VITALS: BP 145/81
[2019-07-18] MEDS: CARVEDILOL 12.5 MG TAB PO SCH ×2 (08:00→18:00)
[2019-07-18] MEDS: Glucerna Carbsteady SHAKE Vanilla 8oz PO SCH ×3 (08:00→18:14)
[2019-07-18] MEDS ORDERED: SODIUM CHLORIDE LOCK 10 ML ONE (08:47)
[2019-07-18] MEDS ORDERED: LIDOCAINE 2%HCL (LOCAL ANESTH.) INJ 20ML MDV ONE (08:47)
[2019-07-18] MEDS ORDERED: EPINEPHrine HCL 1 MG/1 ML AMP ONE (08:47)
[2019-07-18] MEDS ORDERED: GLYCOPYRROLATE 0.2 MG/ML 1ML VIAL ONE (08:48)
[2019-07-18] MEDS ORDERED: LIDOCAINE HCL 2% TOP JELLY 5ML TOP ONE (08:48)
[2019-07-18] MEDS: FLUTICASONE PROP NASAL SPR 0.05 % (50MCG) 16GM EACHNOSTRI SCH ×2 (10:00→22:55)
[2019-07-18] MEDS: DOCUSATE SOD 100 MG CAP PO SCH ×2 (10:00→22:54)
[2019-07-18] MEDS: OXYBUTYNIN CHL 5 MG TAB PO SCH ×2 (10:00→22:54)
--- NOTE | 2019-07-18 10:57 | NUR ---
Patient has orders for a cough assistive device. referral sent to [facility] [phone] for processing.
--- NOTE | 2019-07-18 11:33 | NUR ---
BP elevated 163/76. Phoned Dr. Lakhani and returned call and gave new orders.
[2019-07-18] MEDS ORDERED: hydrALAZINE HCL 20 MG/ML VL IV ONE (11:45)
[2019-07-18 12:00] VITALS: BP 161/89
--- NOTE | 2019-07-18 12:30 | NUR ---
Patient to GI lab per bed for bronchoscopy in a stable condition.
[2019-07-18] MEDS ORDERED: ACETYLCYSTEINE 10 %(100MG/ML) SOL 4ML ONE (12:34)
[2019-07-18] MEDS: MIDAZOLAM HCL 5 MG/ML-1ML VIAL ONE ×2 (12:44→12:55)
[2019-07-18] MEDS: fentaNYL CITRATE 100 MCG/2 ML VL ONE ×2 (12:44→12:55)
[2019-07-18] MEDS ORDERED: hydrALAZINE HCL 20 MG/ML VL IV PRN (14:00)
--- NOTE | 2019-07-18 14:39 | NUR ---
Nutrition Follow-up Notes Wt.: 121.4 kg based on bed scale as of yesterday. Pt's on oxygen via nasal cannula, asleep, no signs of distress noted earlier. Pt's currently NPO for a procedure today, likely to resume oral diet today with active order for Regular diet with Glucerna Shakes 1 carton TID at this time. Est. Needs based on AdBW (80 kg): 1600 kcal to 2000 kcal (20-25 kcal/kgAdBW), 80 gms to 96 gms pro (1.0-1.2 gms/kgAdBW). Will continue to monitor pertinent labs and reassess nutrient need prn Labs: Gluc 125 H, BUN 5 L, Cr 0.36 L, Ca 8.3 L, Alb 2.6 L, HbA1c 6.9 H Skin: Chicho scale 13, mod risk, pt's sacrum w/ scars per refractory mixer. GI: Pt had 1 BM 07/16/19 per refractory mixer. PES: Altered nutrition related lab values r/t current/chronic medical condition aeb hyperglycemia, hyperchloremia, hypocalcemia, elev. HbA1c, mod hypoalbuminemia Obesity r/t food intake more than body requirement aeb 191% IBW, BMI 4.07 kg/m2 and increased body adiposity Will continue to monitor NPO status/PO intake, skin status, pertinent labs and weight trend. F/u in 3 to 5 days. Rec.: 1.) Resume oral diet (Consistent Standard Carb: 60 gms/meal diet) when medically appropriate. 2.) If Albumin continues trending down, consider Prostat 1 pkt BID. 3.) Continue close supervision and feeding assistance prn with meals. 4.) Refer to CDE/RD for further nutrition educ. and weight monitoring upon discharge. 5.) Continue current plan of care.
--- NOTE | 2019-07-18 15:15 | NUR ---
PATIENT BROUGHT BACK TO HIS ROOM PER BED FROM PACU S/P BRONCHOSCOPY. REPORT RECEIVED FROM FRANNY MEZA AT BEDSIDE AND BY PHONE PRIOR TO PATIENT'S RETURN. PATIENT NOTED TO BE AAOX4, WAS IN NO PAIN/ SOB. WILL CONTINUE TO OBSERVE PATIENT FOR GAGGING AND COUGHING. PATIENT'S CAREGIVER PRESENT AT BEDSIDE.
--- NOTE | 2019-07-18 16:58 | NUR ---
Cough assistive device clarification. Please ask Dr. Lakhani to clarify the equipment as order was sent to [facility] [phone], and notification was received that they do not carry that equipment and to please redirect.
[2019-07-18 17:24] VITALS: BP 122/69
[2019-07-18] MEDS: FUROSEMIDE 20 MG/2 ML VIAL IV SCH (18:00)
[2019-07-18] MEDS: TAMSULOSIN HYDROCHLORIDE 0.4 MG CAP PO SCH (18:02)
[2019-07-18] MEDS: LISINOPRIL 20 MG TAB PO SCH (18:03)
[2019-07-18] MEDS: PANTOPRAZOLE 40 MG TAB PO SCH (18:06)
[2019-07-18] MEDS: LORATADINE 10 MG TAB PO SCH (18:06)
[2019-07-18] MEDS: amLODIPine BESYLATE 5 MG TAB PO SCH (18:07)
[2019-07-18] MEDS: CYANOCOBALAMIN 500 MCG TAB PO SCH (18:10)
--- NOTE | 2019-07-18 18:50 | NUR ---
PATIENT HAVING HALLUCINATION AT THIS TIME. PATIENT WAS ANXIOUS AND STATED THAT THERE WERE PEOPLE UNDER THE TABLE AND NOTED PATIENT'S BACK PACK AND SHOWED IT TO THE PATIENT. PATIENT WAS LESS ANXIOUS AFTER AND STATED THAT HE WAS BEING SUSPICIOUS.
[2019-07-18 20:46] VITALS: BP 122/69
[2019-07-18 21:59] VITALS: BP 119/66
[2019-07-18] MEDS: SENNA 8.6 MG TAB PO SCH (22:52)
[2019-07-19] MEDS: IPRATROPIUM BROM 0.5 MG/2.5ML INH SOL NEB SCH ×4 (00:05→18:05)
[2019-07-19] MEDS: ACETYLCYSTEINE 20%(200MG/ML) SOL 4ML NEB SCH ×4 (00:05→18:06)
[2019-07-19] MEDS: ALBUTEROL SULF 2.5 MG/0.5ML(0.5%) NEB SOLN NEB SCH ×4 (00:05→18:05)
[2019-07-19] MEDS: cefTAZidime 1 GM in SODIUM CHL 0.9% 50 ML IV SCH ×3 (02:00→18:32)
[2019-07-19] MEDS: SOD CHL 0.9%/ KCL 40MEQ 1,000 ML IV SCH ×3 (03:59→16:05)
[2019-07-19 05:39] VITALS: BP 134/61
[2019-07-19] MEDS: ACCU-CHEK COMFORT CURVE STRIP VI SCH ×4 (06:17→22:40)
[2019-07-19] MEDS: SIMETHICONE 80 MG CHEWABLE TABLET PO SCH ×4 (06:21→22:39)
[2019-07-19] MEDS: FUROSEMIDE 20 MG/2 ML VIAL IV SCH ×2 (06:21→18:27)
[2019-07-19] MEDS: FERROUS SULFATE 325 MG TAB PO SCH ×3 (06:22→22:38)
[2019-07-19] MEDS: glipiZIDE 5 MG TAB PO SCH (06:38)
[2019-07-19] MEDS: InsuLIN REG 1unit/0.01ml Soln (100units/ml) SC SCH ×4 (06:39→22:00)
[2019-07-19 06:43] LABS: Basophils # (auto) 0 uL; Basophils % (auto) 0.2 % (0.0-2.0); Eosinophils # (auto) 0.1 uL; Eosinophils % (auto) 1.4 % (0.0-7.0); Hematocrit 32.9 % (41.0-53.0); Hemoglobin 11.1 g/dL (13.5-17.5); Lymphocytes # (auto) 0.6 uL; Mean Corpuscular Hgb Conc. 33.6 g/dL (32.0-36.0); Mean Corpuscular Volume 89.4 fL (80.0-100.0); Monocytes # (auto) 0.6 uL; Monocytes % (auto) 8.6 % (0.0-12.0); Neutrophils # (auto) 5.6 uL; Neutrophils % (auto) 80.8 % (37.0-80.0); Platelet Count (auto) 217 10^3/uL (140-450); Red Blood Cells 3.68 10^6/uL (4.5-5.90); Red Cell Distribution Width 15.2 % (11.8-14.3); White Blood Cell 6.9 10^3/uL (4.4-10.8)
[2019-07-19 06:58] LABS: Potassium 4.1 mmol/L (3.5-5.1)
[2019-07-19 07:04] LABS: Albumin 2.5 g/dL (3.4-5.0); BUN/Creatinine Ratio 16.7; Bilirubin, Total 0.4 mg/dL (0.2-1.0); Calcium 8.2 mg/dL (8.5-10.1); Phosphorus 2.9 mg/dL (2.5-4.90)
--- NOTE | 2019-07-19 07:35 | NUR ---
Opening Shift Note Assumed care of patient, awake and alert. No S/S of distress/SOB or pain. Instructed on POC and to call for assist PRN, will continue to monitor for changes Q1hr and PRN.
[2019-07-19] MEDS: CARVEDILOL 12.5 MG TAB PO SCH ×2 (08:29→18:31)
[2019-07-19] MEDS: Glucerna Carbsteady SHAKE Vanilla 8oz PO SCH ×3 (08:30→18:28)
[2019-07-19 09:00] VITALS: BP 140/79
[2019-07-19] MEDS ORDERED: METOPROLOL SUCCINATE XL 50 MG TAB PO SCH (10:00)
[2019-07-19] MEDS: DOCUSATE SOD 100 MG CAP PO SCH ×2 (10:20→22:39)
[2019-07-19] MEDS: PANTOPRAZOLE 40 MG TAB PO SCH (10:20)
[2019-07-19] MEDS: amLODIPine BESYLATE 5 MG TAB PO SCH (10:20)
[2019-07-19] MEDS: FLUTICASONE PROP NASAL SPR 0.05 % (50MCG) 16GM EACHNOSTRI SCH ×2 (10:21→22:40)
[2019-07-19] MEDS: OXYBUTYNIN CHL 5 MG TAB PO SCH ×2 (10:21→22:39)
[2019-07-19] MEDS: LISINOPRIL 20 MG TAB PO SCH (10:21)
[2019-07-19] MEDS: LORATADINE 10 MG TAB PO SCH (10:21)
[2019-07-19] MEDS: CYANOCOBALAMIN 500 MCG TAB PO SCH (10:22)
--- NOTE | 2019-07-19 11:30 | NUR ---
PATIENT VERY ANXIOUS AND CALLED THAT THERE WERE PEOPLE UNDER HIS BED AROUND HIM AND THEY WERE MOLESTING HIM. NO OTHER PERSON WAS INSIDE PATIENT'S ROOM BUT HE WAS INSISTING THAT THERE WERE. PATIENT ASKED THAT ALL HIS LINENS BE CHANGED HE DID NOT FEEL COMFORTABLE WITH OLD LINENS. PATIENT WAS BATHED AND ALL LINENS WERE CHANGED AND PATIENT DID NOT C/O HALLUCINATIONS AFTER.
--- NOTE | 2019-07-19 12:30 | NUR ---
DR. SOLARES WAS IN TO SEE AND WAS NOTIFIED OF PATIENT'S HALLUCINATIONS AND MD LEFT NEW ORDERS.
[2019-07-19 13:00] VITALS: BP 135/68
--- NOTE | 2019-07-19 13:11 | NUR ---
Respiratory note: AT BEDSIDE FOR SCHEDULED 1200 MEDNEB TX. TX NOT GIVEN AT THIS TIME, PT REQUESTING TO TAKE TX LATER, STILL EATING LUNCH. NO S/S OF RESPIRATORY DISTRESS NOTED. NURSE'S AIDE AT BEDSIDE. WILL RETURN AFTER LUNCH.
--- NOTE | 2019-07-19 14:10 | NUR ---
Respiratory note: RETURNED FOR MEDNEB TX. TX GIVEN, PT TOLERATED WELL, NO ADVERSE REACTIONS NOTED. HR 80, RR 20, SPO2 93% ON 4LPM NC. BREATH SOUNDS EXPIRATORY COARSE CRACKLES. ASKED PT IF HE WANTED NTS SUCTION, PT REFUSED AT THIS TIME. ASSISTED WITH COUGH AND SUCTIONED ORALLY WITH MARIA C. PLACED PT BACK ON 4 LPM, SPO2 93%. ADVISED PT TO CALL FOR RT IF REQUESTING SUCTION. PT VERBALIZED UNDERSTANDING.
--- NOTE | 2019-07-19 16:05 | NUR ---
Respiratory note: RT CALLED TO BEDSIDE FOR NT SUCTION. SUCTIONED X2 FOR LARGE AMOUNT THIN WHITE SECRETIONS. PT TOLERATED WELL. BREATH SOUNDS STILL EXPIRATORY COARSE CRACKLES. HR 90, RR 22, SPO2 92% ON 4 LPM NC. ADVISED PT TO CALL FOR RT IF REQUESTING SUCTION AGAIN. NO S/S OF RESPIRATORY DISTRESS NOTED.
[2019-07-19 17:00] VITALS: BP 104/53
[2019-07-19] MEDS: TAMSULOSIN HYDROCHLORIDE 0.4 MG CAP PO SCH (18:27)
--- NOTE | 2019-07-19 18:50 | NUR ---
NO FURTHER HALLUCINATIONS NOTED AT THIS TIME.
[2019-07-19] MEDS: SENNA 8.6 MG TAB PO SCH (22:38)
[2019-07-20] MEDS: ACETYLCYSTEINE 20%(200MG/ML) SOL 4ML NEB SCH ×4 (00:29→19:02)
[2019-07-20] MEDS: ALBUTEROL SULF 2.5 MG/0.5ML(0.5%) NEB SOLN NEB SCH ×4 (00:29→19:02)
[2019-07-20] MEDS: IPRATROPIUM BROM 0.5 MG/2.5ML INH SOL NEB SCH ×4 (00:29→19:02)
[2019-07-20] MEDS: cefTAZidime 1 GM in SODIUM CHL 0.9% 50 ML IV SCH ×3 (02:00→18:28)
[2019-07-20] MEDS: SOD CHL 0.9%/ KCL 40MEQ 1,000 ML IV SCH ×3 (02:05→22:05)
[2019-07-20 05:21] VITALS: BP 132/77
[2019-07-20] MEDS: FUROSEMIDE 20 MG/2 ML VIAL IV SCH ×2 (05:52→18:28)
[2019-07-20] MEDS: SIMETHICONE 80 MG CHEWABLE TABLET PO SCH ×4 (05:53→22:20)
[2019-07-20] MEDS: InsuLIN REG 1unit/0.01ml Soln (100units/ml) SC SCH ×4 (05:53→22:20)
[2019-07-20] MEDS: glipiZIDE 5 MG TAB PO SCH (05:53)
[2019-07-20] MEDS: ACCU-CHEK COMFORT CURVE STRIP VI SCH ×4 (05:53→22:20)
[2019-07-20] MEDS: FERROUS SULFATE 325 MG TAB PO SCH ×3 (05:59→22:19)
--- NOTE | 2019-07-20 07:49 | NUR ---
OPENING SHIFT NOTE Assumed care of patient, awake and alert. No S/S of distress/SOB or pain. Instructed on POC and to call for assist PRN, will continue to monitor for changes Q1hr and PRN.
[2019-07-20] MEDS: CARVEDILOL 12.5 MG TAB PO SCH ×2 (08:57→18:28)
[2019-07-20 09:00] VITALS: BP 128/68
[2019-07-20] MEDS: Glucerna Carbsteady SHAKE Vanilla 8oz PO SCH ×3 (09:00→18:28)
[2019-07-20] MEDS: PANTOPRAZOLE 40 MG TAB PO SCH (11:18)
[2019-07-20] MEDS: CYANOCOBALAMIN 500 MCG TAB PO SCH (11:18)
[2019-07-20] MEDS: DOCUSATE SOD 100 MG CAP PO SCH ×2 (11:18→22:19)
[2019-07-20] MEDS: LORATADINE 10 MG TAB PO SCH (11:19)
[2019-07-20] MEDS: OXYBUTYNIN CHL 5 MG TAB PO SCH ×2 (11:19→22:20)
[2019-07-20] MEDS: amLODIPine BESYLATE 5 MG TAB PO SCH (11:19)
[2019-07-20] MEDS: FLUTICASONE PROP NASAL SPR 0.05 % (50MCG) 16GM EACHNOSTRI SCH ×2 (11:21→22:19)
[2019-07-20] MEDS: LISINOPRIL 20 MG TAB PO SCH (11:22)
[2019-07-20 13:00] VITALS: BP 92/50
--- NOTE | 2019-07-20 13:30 | NUR ---
WOUND CARE NOTE: IN TO SEE PATIENT AT THIS TIME FOR SKIN INTEGRITY MONITORING. PATIENT CONTINUES TO REST ON AIR BED. BONITA FOAM BOOTS APPLIED TO BILATERAL FEET/HEELS. CURRENT AMOS SCORE IS 13. PATIENT IS CONFUSED, CONTINUES TO BE MAX ASSIST FOR HIS ADL'S. PATIENT'S SKIN REMAINS INTACT, WITH PINK COLLAGEN SCARS NOTED TO SACRUM AND ISCHIUM. OPTIFOAM GENTLE SACRAL DRESSING REAPPLIED. UPDATED SKIN/WOUND CARE PLAN. RECOMMEND: CONTINUATION WITH ALL WOUND CARE ORDERS PREVIOUSLY PRESCRIBED BY MD. WOUND CARE TEAM WILL CONTINUE TO MONITOR.
--- NOTE | 2019-07-20 15:00 | NUR ---
PERFORMED WOUND CARE ORDERED.
[2019-07-20 17:00] VITALS: BP 111/54
[2019-07-20] MEDS: TAMSULOSIN HYDROCHLORIDE 0.4 MG CAP PO SCH (18:27)
--- NOTE | 2019-07-20 19:50 | NUR ---
Opening Shift Note Assumed care of patient, awake and alert. No S/S of distress/SOB or pain. Instructed on POC and to call for assist PRN, will continue to monitor for changes Q1hr and PRN. Patient on air bed with possey foam boots is in a supine position and states to be comfortable.
[2019-07-20 22:00] VITALS: BP 105/45
[2019-07-20] MEDS: SENNA 8.6 MG TAB PO SCH (22:20)
[2019-07-21] VITALS (7 sets, daily range): BP systolic 105–119; BP diastolic 58–103
--- NOTE | 2019-07-21 | NUR ---
Patient had an episode of confusion. He kept stating that he needed to get off the bus. Oriented the patient, will continue to monitor. Addendum: 07/22/19 at 0214 by LORENA ORTIZ RN RN Actual day 07/22/2019
[2019-07-21] MEDS: ALBUTEROL SULF 2.5 MG/0.5ML(0.5%) NEB SOLN NEB SCH ×4 (00:16→19:40)
[2019-07-21] MEDS: IPRATROPIUM BROM 0.5 MG/2.5ML INH SOL NEB SCH ×4 (00:16→19:40)
[2019-07-21] MEDS: ACETYLCYSTEINE 20%(200MG/ML) SOL 4ML NEB SCH ×4 (00:16→19:40)
[2019-07-21] MEDS: cefTAZidime 1 GM in SODIUM CHL 0.9% 50 ML IV SCH ×3 (02:15→18:25)
[2019-07-21 05:55] LABS: Basophils # (auto) 0 uL; Basophils % (auto) 0.3 % (0.0-2.0); Eosinophils # (auto) 0 uL; Eosinophils % (auto) 0.4 % (0.0-7.0); Hematocrit 32.7 % (41.0-53.0); Hemoglobin 10.9 g/dL (13.5-17.5); Lymphocytes # (auto) 0.4 uL; Lymphocytes % (auto) 6.5 % (10.0-50.0); Mean Corpuscular Hemoglobin 29.4 pg (28.0-32.0); Mean Corpuscular Hgb Conc. 33.3 g/dL (32.0-36.0); Mean Corpuscular Volume 88.4 fL (80.0-100.0); Monocytes # (auto) 0.8 uL; Monocytes % (auto) 11.8 % (0.0-12.0); Neutrophils # (auto) 5.2 uL; Platelet Count (auto) 234 10^3/uL (140-450); Red Cell Distribution Width 15.1 % (11.8-14.3); White Blood Cell 6.5 10^3/uL (4.4-10.8)
[2019-07-21 06:12] LABS: BUN/Creatinine Ratio 36.2; Calcium 8.4 mg/dL (8.5-10.1); Potassium 3.7 mmol/L (3.5-5.1)
[2019-07-21] MEDS: SIMETHICONE 80 MG CHEWABLE TABLET PO SCH ×4 (06:40→21:41)
[2019-07-21] MEDS: FERROUS SULFATE 325 MG TAB PO SCH ×3 (06:40→21:40)
[2019-07-21] MEDS: glipiZIDE 5 MG TAB PO SCH (06:40)
[2019-07-21] MEDS: FUROSEMIDE 20 MG/2 ML VIAL IV SCH ×2 (06:40→18:25)
[2019-07-21] MEDS: InsuLIN REG 1unit/0.01ml Soln (100units/ml) SC SCH ×4 (06:41→21:41)
[2019-07-21] MEDS: ACCU-CHEK COMFORT CURVE STRIP VI SCH ×4 (06:41→21:41)
--- NOTE | 2019-07-21 07:40 | NUR ---
OPENING SHIFT NOTE Resumed care of patient. Pt is awake and alert. No S/S of distress/SOB or pain. Family at bedside. Instructed on POC and to call for assist PRN, will continue to monitor for changes Q1hr and PRN.
[2019-07-21] MEDS: DOCUSATE SOD 100 MG CAP PO SCH ×2 (09:35→21:40)
[2019-07-21] MEDS: CYANOCOBALAMIN 500 MCG TAB PO SCH (09:36)
[2019-07-21] MEDS: LORATADINE 10 MG TAB PO SCH (09:36)
[2019-07-21] MEDS: PANTOPRAZOLE 40 MG TAB PO SCH (09:36)
[2019-07-21] MEDS: OXYBUTYNIN CHL 5 MG TAB PO SCH ×2 (09:36→21:40)
[2019-07-21] MEDS: amLODIPine BESYLATE 5 MG TAB PO SCH (09:39)
[2019-07-21] MEDS: LISINOPRIL 20 MG TAB PO SCH (09:39)
[2019-07-21] MEDS: CARVEDILOL 12.5 MG TAB PO SCH ×2 (09:40→18:27)
[2019-07-21] MEDS: Glucerna Carbsteady SHAKE Vanilla 8oz PO SCH ×3 (09:40→18:26)
[2019-07-21] MEDS: FLUTICASONE PROP NASAL SPR 0.05 % (50MCG) 16GM EACHNOSTRI SCH ×2 (09:41→21:46)
[2019-07-21] MEDS: SOD CHL 0.9%/ KCL 40MEQ 1,000 ML IV SCH ×2 (09:41→18:27)
[2019-07-21] MEDS ORDERED: TEMAZEPAM 15 MG CAP PO PRN (14:30)
--- NOTE | 2019-07-21 17:00 | NUR ---
URINE SAMPLE COLLECTED AND SENT TO LAB
[2019-07-21] MEDS: TAMSULOSIN HYDROCHLORIDE 0.4 MG CAP PO SCH (18:26)
--- NOTE | 2019-07-21 19:30 | NUR ---
Opening Shift Note Assumed care of patient, awake and alert. No S/S of pain. Instructed on POC and to call for assist PRN, will continue to monitor for changes Q1hr and PRN. Patient connect to 5L nasal cannula with no SOB. Trinh intact, hanging below bed, draining to gravity. Patient has possey boots on.
[2019-07-21] MEDS: SENNA 8.6 MG TAB PO SCH (21:40)
[2019-07-21] MEDS: SALINE 0.65 % NASAL SPRAY 45ML BOTTLE EACHNOSTRI SCH (22:00)
[2019-07-21 22:25] LABS: Urine Bacteria NONE SEEN /hpf (None Seen); Urine Blood Negative /uL (Negative); Urine Mucus FEW (None Seen); Urine Specific Gravity 1.018 (1.001-1.035); Urine WBC 12 /hpf (0 - 3)
[2019-07-22] MEDS: IPRATROPIUM BROM 0.5 MG/2.5ML INH SOL NEB SCH ×4 (00:40→19:42)
[2019-07-22] MEDS: ALBUTEROL SULF 2.5 MG/0.5ML(0.5%) NEB SOLN NEB SCH ×4 (00:40→19:42)
[2019-07-22] MEDS: ACETYLCYSTEINE 20%(200MG/ML) SOL 4ML NEB SCH ×4 (00:41→19:42)
--- NOTE | 2019-07-22 02:00 | NUR ---
Patient continues to have episodes of confusion. Stated to see ties hanging from the ceiling. Reoriented patient and encourage to sleep.
[2019-07-22] MEDS: cefTAZidime 1 GM in SODIUM CHL 0.9% 50 ML IV SCH ×3 (02:25→18:33)
[2019-07-22] MEDS: SOD CHL 0.9%/ KCL 40MEQ 1,000 ML IV SCH ×2 (04:05→15:37)
[2019-07-22 05:00] VITALS: BP 147/89
--- NOTE | 2019-07-22 05:00 | NUR ---
Patient continues to have episodes of confusion. States to see rainbows in the room. Reoriented and encourage to sleep.
[2019-07-22 05:57] LABS: Basophils # (auto) 0 uL; Basophils % (auto) 0.3 % (0.0-2.0); Eosinophils # (auto) 0 uL; Eosinophils % (auto) 0.8 % (0.0-7.0); Hematocrit 33.8 % (41.0-53.0); Hemoglobin 11.3 g/dL (13.5-17.5); Lymphocytes # (auto) 0.7 uL; Lymphocytes % (auto) 11.9 % (10.0-50.0); Mean Corpuscular Hemoglobin 29.3 pg (28.0-32.0); Mean Corpuscular Hgb Conc. 33.4 g/dL (32.0-36.0); Mean Corpuscular Volume 87.9 fL (80.0-100.0); Monocytes # (auto) 0.7 uL; Monocytes % (auto) 11.5 % (0.0-12.0); Neutrophils # (auto) 4.6 uL; Neutrophils % (auto) 75.5 % (37.0-80.0); Nucleated Red Blood Cells % 0.1 %; Platelet Count (auto) 221 10^3/uL (140-450); Red Blood Cells 3.85 10^6/uL (4.5-5.90); Red Cell Distribution Width 15.1 % (11.8-14.3); White Blood Cell 6.1 10^3/uL (4.4-10.8)
[2019-07-22 06:17] LABS: Albumin 2.6 g/dL (3.4-5.0); Calcium 8.2 mg/dL (8.5-10.1); Potassium 3.9 mmol/L (3.5-5.1)
[2019-07-22 06:21] LABS: BUN/Creatinine Ratio 25.6; Bilirubin, Total 0.3 mg/dL (0.2-1.0); Total Protein 7.5 g/dL (6.4-8.2)
--- NOTE | 2019-07-22 06:30 | NUR ---
Patients continues to have episodes of confusion. States to see a little girl by his private area. Reoriented patient and encourage to sleep.
[2019-07-22] MEDS: SIMETHICONE 80 MG CHEWABLE TABLET PO SCH ×4 (06:35→22:03)
[2019-07-22] MEDS: FERROUS SULFATE 325 MG TAB PO SCH ×3 (06:36→22:03)
[2019-07-22] MEDS: glipiZIDE 5 MG TAB PO SCH (06:36)
[2019-07-22] MEDS: FUROSEMIDE 20 MG/2 ML VIAL IV SCH ×2 (06:36→18:33)
[2019-07-22] MEDS: InsuLIN REG 1unit/0.01ml Soln (100units/ml) SC SCH ×4 (06:37→22:00)
[2019-07-22] MEDS: ACCU-CHEK COMFORT CURVE STRIP VI SCH ×4 (06:37→22:04)
--- NOTE | 2019-07-22 07:12 | NUR ---
Opening shift note Assumed care of patient from maintenance technician 3rd shift RN. Patient is alert and oriented x3, patient stated he sees "bears". Patient was reoriented and updated on the plan of care. Patient verbalized understanding. Bed is locked, in the lowest position, side rails upx2, and call light is in reach. Patient was encouraged to call for assistance.
--- NOTE | 2019-07-22 07:30 | NUR ---
Care endorsed to dayshift nurse. Made of aware of patient confusion episodes.
[2019-07-22] MEDS: CARVEDILOL 12.5 MG TAB PO SCH ×2 (08:22→18:32)
[2019-07-22] MEDS: Glucerna Carbsteady SHAKE Vanilla 8oz PO SCH ×3 (08:23→18:34)
[2019-07-22 09:00] VITALS: BP 122/84
[2019-07-22] MEDS: SALINE 0.65 % NASAL SPRAY 45ML BOTTLE EACHNOSTRI SCH ×2 (10:00→22:00)
[2019-07-22] MEDS: OXYBUTYNIN CHL 5 MG TAB PO SCH ×2 (10:03→22:03)
[2019-07-22] MEDS: DOCUSATE SOD 100 MG CAP PO SCH ×2 (10:03→22:04)
[2019-07-22] MEDS: CYANOCOBALAMIN 500 MCG TAB PO SCH (10:03)
[2019-07-22] MEDS: amLODIPine BESYLATE 5 MG TAB PO SCH (10:04)
[2019-07-22] MEDS: LORATADINE 10 MG TAB PO SCH (10:04)
[2019-07-22] MEDS: LISINOPRIL 20 MG TAB PO SCH (10:04)
[2019-07-22] MEDS: PANTOPRAZOLE 40 MG TAB PO SCH (10:05)
[2019-07-22] MEDS: FLUTICASONE PROP NASAL SPR 0.05 % (50MCG) 16GM EACHNOSTRI SCH ×2 (10:12→22:03)
--- NOTE | 2019-07-22 11:10 | NUR ---
I faxed higher level of care order to [facility].
[2019-07-22 13:00] VITALS: BP 130/64
[2019-07-22] MEDS ORDERED: EZ PAQUE SUSP 12OZ BTL ONE (13:24)
--- NOTE | 2019-07-22 14:36 | NUR ---
MODIFIED BARIUM SWALLOW. PATIENT IS ASPIRATING ON THIN LIQUIDS. MODERATE DIFFICULTY WITH TRIAL OF PUREE. SOME POOLING.
--- NOTE | 2019-07-22 15:33 | NUR ---
IV insertion IV access obtained, via clean sterile technique by inserting 22 gauge catheter at left upper arm after 1 attempt. IV secured properly. No trauma to site. Patient tolerated well. Midline removed, catheter intact. Patient tolerated well.
[2019-07-22 17:00] VITALS: BP 153/84
[2019-07-22] MEDS: TAMSULOSIN HYDROCHLORIDE 0.4 MG CAP PO SCH (18:33)
--- NOTE | 2019-07-22 19:06 | NUR ---
Closing shift notes Endorsed care to fast food shift supervisor RN. No signs of distress noted.
--- NOTE | 2019-07-22 20:05 | NUR ---
open note assumed care of pt. upon entering room pt awake and alert. pt disoriented as to time, this nurse oriented patient to time and date. pt on 5L NC no distress noted. pt has suprapubic catheter in place, pt also has colostomy. pt denies any pain at this time. pt updated on plan of care, no questions at this time. pt bed locked, low and 2x rails up. pt is on specialty air mattress. call light in reach, this nurse will round q1hr and prn.
[2019-07-22 20:41] LABS: Folate (Folic Acid) > 24.00 ng/mL (5.38-24)
[2019-07-22 21:00] VITALS: BP 103/67
[2019-07-22] MEDS: SENNA 8.6 MG TAB PO SCH (22:03)
[2019-07-23] VITALS (7 sets, daily range): BP systolic 102–148; BP diastolic 66–92
[2019-07-23] MEDS: IPRATROPIUM BROM 0.5 MG/2.5ML INH SOL NEB SCH ×4 (00:11→19:02)
[2019-07-23] MEDS: ACETYLCYSTEINE 20%(200MG/ML) SOL 4ML NEB SCH ×4 (00:11→19:02)
[2019-07-23] MEDS: ALBUTEROL SULF 2.5 MG/0.5ML(0.5%) NEB SOLN NEB SCH ×4 (00:11→19:02)
--- NOTE | 2019-07-23 00:13 | NUR ---
pt disoriented and stating he sees 'things' crawling on the donaldson'. when this nurse attempts to reorient pt he makes incoherent statements to the effect of 'people' being after him, 'doing things' to him, etc. pt is speaking out loud to no one in particular. pt sounds as if he is arguing with someone. this nurse will medicate per MD and MAR order for agitation and psychosis.
[2019-07-23] MEDS: SOD CHL 0.9%/ KCL 40MEQ 1,000 ML IV SCH ×2 (00:27→10:05)
[2019-07-23] MEDS: HALOPERIDOL LACTATE 5 MG/ML INJ VIAL IM PRN (00:28)
[2019-07-23] MEDS: cefTAZidime 1 GM in SODIUM CHL 0.9% 50 ML IV SCH ×3 (02:37→19:23)
[2019-07-23] MEDS: FERROUS SULFATE 325 MG TAB PO SCH ×3 (06:30→22:10)
[2019-07-23] MEDS: SIMETHICONE 80 MG CHEWABLE TABLET PO SCH ×4 (06:30→22:10)
[2019-07-23] MEDS: ACCU-CHEK COMFORT CURVE STRIP VI SCH ×4 (06:30→22:20)
[2019-07-23] MEDS: glipiZIDE 5 MG TAB PO SCH (06:30)
[2019-07-23] MEDS: InsuLIN REG 1unit/0.01ml Soln (100units/ml) SC SCH ×4 (06:30→22:00)
[2019-07-23] MEDS: FUROSEMIDE 20 MG/2 ML VIAL IV SCH ×2 (06:31→18:04)
--- NOTE | 2019-07-23 07:25 | NUR ---
Opening Shift Note Assumed care of patient, awake and alert. No S/S of distress/SOB or pain reported at this time. Currently on 5L via NC, Instructed on POC and to call for assist PRN, special call light within reach, pt able to demonstrate how to call for assist, aspiration precautions in place, specialty matres, bed alarm activated, will continue to monitor for changes Q1hr and PRN and turn Q2hr Addendum: 07/23/19 at 1925 by Natalie Reyes RN SKIN ASSESSED AND NOTED LEFT POSTERIOR ISCHIUM REGION MOIST, SITE APPEARS TO BE SCAR THAT STARTED DRAINING, POSTERIOR SACRUM OPTIFOAM REMOVED TO ASSESS SKIN AND NOTED OLD SCAR NOT OPEN, ALSO RIGHT HIP DRESSING OPENED AND NOTED SCAR, PINK AND SCALY, WILL TURN Q2HR
[2019-07-23 07:36] LABS: Basophils # (auto) 0 uL; Basophils % (auto) 0.4 % (0.0-2.0); Eosinophils # (auto) 0 uL; Eosinophils % (auto) 0.6 % (0.0-7.0); Hematocrit 34.2 % (41.0-53.0); Hemoglobin 11.5 g/dL (13.5-17.5); Lymphocytes # (auto) 0.6 uL; Lymphocytes % (auto) 10.1 % (10.0-50.0); Mean Corpuscular Hemoglobin 29.4 pg (28.0-32.0); Mean Corpuscular Hgb Conc. 33.6 g/dL (32.0-36.0); Mean Corpuscular Volume 87.5 fL (80.0-100.0); Monocytes # (auto) 0.5 uL; Monocytes % (auto) 9.1 % (0.0-12.0); Neutrophils # (auto) 4.7 uL; Neutrophils % (auto) 79.8 % (37.0-80.0); Platelet Count (auto) 255 10^3/uL (140-450); Red Blood Cells 3.91 10^6/uL (4.5-5.90); White Blood Cell 5.9 10^3/uL (4.4-10.8)
[2019-07-23 07:54] LABS: Albumin 2.7 g/dL (3.4-5.0); BUN/Creatinine Ratio 31.1; Calcium 8.7 mg/dL (8.5-10.1)
[2019-07-23 07:57] LABS: Bilirubin, Total 0.5 mg/dL (0.2-1.0); Total Protein 7.9 g/dL (6.4-8.2)
[2019-07-23] MEDS: Glucerna Carbsteady SHAKE Vanilla 8oz PO SCH ×3 (08:00→18:00)
[2019-07-23] MEDS: CARVEDILOL 12.5 MG TAB PO SCH ×2 (08:00→18:05)
--- NOTE | 2019-07-23 09:32 | NUR ---
Reassessment SW notified by pt's that pt needs to be transferred to higher level of care. SW went bedside to discuss the transfer with the pt and his family. Pt was no longer alert and oriented in order to discuss the transfer with him and pt's daughter, who was bedside, asked SW to discuss the transfer with pt's ex-, Monie, at [phone] who is his emergency contact. SW called Monie and gave her the information. Monie asked to talk with either pt's doctor, Lane, or nurse, Natalie, to discuss the medical reasons for transfer. SW contacted pt's nurse and and gave her Monie's contact information and reason for contact. Pt's nurse stated that she would reach out and discuss the transfer with Monie.
[2019-07-23] MEDS: CYANOCOBALAMIN 500 MCG TAB PO SCH (10:00)
--- NOTE | 2019-07-23 10:23 | NUR ---
IV removal/Swelling noted IV DC'd, after swelling noted, no redness or pain noted, IV dc'd with clean sterile technique, catheter fully intact. Pressure dressing applied to site. Patient tolerated well. Patient currently refusing IV insertion states " after i get cleaned up", kitchen manager at bedside, to assist with sponge bath, clean linen and gown provided, cont care
--- NOTE | 2019-07-23 11:10 | NUR ---
BOX LINING MACHINE FEEDER AT BEDSIDE CONT WITH BED BATH PATIENT CONT TO RECEIVE A COMPLETE BED BATH AND LINEN CHANGE BY TELECOMMUNICATIONS SWITCH TECHNICIAN, OFFER ASSIST, STATES SHE CAN DO IT, CALL LIGHT WITH REACH, NO DISTRESS NOTED AT THIS TIME
--- NOTE | 2019-07-23 12:04 | NUR ---
ACTIVITY MANAGER AT BEDSIDE FOR SET UP THORACENTESIS PT AXOX4, FAMILY AT BEDSIDE Addendum: 07/23/19 at 1833 by Natalie Reyes RN WRONG PATIENT
[2019-07-23] MEDS: LISINOPRIL 20 MG TAB PO SCH (13:29)
[2019-07-23] MEDS: PANTOPRAZOLE 40 MG TAB PO SCH (13:30)
[2019-07-23] MEDS: amLODIPine BESYLATE 5 MG TAB PO SCH (13:30)
[2019-07-23] MEDS: OXYBUTYNIN CHL 5 MG TAB PO SCH ×2 (13:30→22:10)
[2019-07-23] MEDS: LORATADINE 10 MG TAB PO SCH (13:31)
[2019-07-23] MEDS: DOCUSATE SOD 100 MG CAP PO SCH ×2 (13:31→22:10)
[2019-07-23] MEDS: FLUTICASONE PROP NASAL SPR 0.05 % (50MCG) 16GM EACHNOSTRI SCH ×2 (13:32→22:10)
[2019-07-23] MEDS: SALINE 0.65 % NASAL SPRAY 45ML BOTTLE EACHNOSTRI SCH ×2 (13:32→22:11)
--- NOTE | 2019-07-23 13:45 | NUR ---
Referral sent to [facility] for review. [phone]. Acceptance is pending.
--- NOTE | 2019-07-23 14:35 | NUR ---
PT TURNED USING PILLOWS TO OFF LOAD PRESSURE, TURNED ONTO LEFT SIDE, PT HOB>30, NO DISTRESS NOTED, TOLERATED WELL
--- NOTE | 2019-07-23 15:27 | NUR ---
Nutrition Follow-up Notes Wt.: 115.0 kg based on bed scale as of yesterday. Noted 6.4 kg weight loss in last 4 days likely d/t ? fluid loss aeb negative I & Os for past few days. Pt's room curtain's closed with RN at bedside during rounds this morning. Pt's s/p Therapeutic Bronchoscopy (07/18/19), on oxygen via nasal cannula, no signs of distress noted by RN earlier, had swallow eval by ST yesterday, currently Regular diet with Glucerna Shakes 1 carton TID has inadequate PO intake aeb <50% ave. consumed meals (x5) in last 3 days d/t pt refused, per nursing. Est. Needs based on AdBW (80 kg): 1600 kcal to 2000 kcal (20-25 kcal/kgAdBW), 80 gms to 96 gms pro (1.0-1.2 gms/kgAdBW). Will continue to monitor pertinent labs and reassess nutrient need prn Labs: Gluc 114 H, Cr 0.45 L, Alb 2.7 L; HbA1c 6.9 H Skin: Chicho scale 13, mod risk, pt's sacrum w/ scars per documentation supervisor. GI: Pt had 350 ml stool output yesterday per documentation supervisor. PES: Altered nutrition related lab values r/t current/chronic medical condition aeb hyperglycemia, hyperchloremia, hypocalcemia, elev. HbA1c, mod hypoalbuminemia Obesity r/t food intake more than body requirement aeb 191% IBW, BMI 40.7 kg/m2 and increased body adiposity Will continue to monitor PO intake, skin status, pertinent labs and weight trend. F/u in 3 to 5 days. Rec.: 1.) Pls enter order for Pureed Consistent Standard Carb: 60 gms/meal diet, already e-signed approved by MD. 2.) Continue close supervision and feeding assistance prn with meals. 3.) If Albumin continues trending down, consider Prostat 1 pkt BID. 4.) Refer to CDE/RD for further nutrition educ. and weight monitoring upon discharge. 5.) Continue current plan of care.
--- NOTE | 2019-07-23 17:20 | NUR ---
METAL ALLOY SCIENTIST AT BEDSIDE TO ASSIST WITH DINNER PT TOLERATED DINNER, HOB>30, CONT CARE
[2019-07-23] MEDS: TAMSULOSIN HYDROCHLORIDE 0.4 MG CAP PO SCH (18:04)
--- NOTE | 2019-07-23 19:15 | NUR ---
DR HANSON AT BEDSIDE NEW ORDERS ENTERED
--- NOTE | 2019-07-23 19:35 | NUR ---
open note assumed care of pt. upon entering room pt awake and alert. Currently on 5L NC with no distress noted; denies SOB at this time. pt has suprapubic catheter in place; draining light fernanda urine to gravity. Tubing is free from kinks and collection bag is hung below the level of the bladder. Pt also has colostomy, which was changed today by patient's caregiver. Denies any pain at this time. Updated on plan of care, no questions at this time. pt bed locked, low and side rails up x2. pt is on specialty air mattress, turned onto right side at this time. Call light is within reach. Will continue to monitor for changes PRN.
--- NOTE | 2019-07-23 21:30 | NUR ---
Patient repositioned for comfort. Pillows adjusted to offload pressure. Tolerates well.
[2019-07-23] MEDS: SENNA 8.6 MG TAB PO SCH (22:10)
--- NOTE | 2019-07-23 22:10 | NUR ---
Patient suctioned orally to assist in clearing secretions. Return of small amount of thin clear secretions. Patient tolerates well. Will continue to monitor for changes PRN.
--- NOTE | 2019-07-23 22:15 | NUR ---
Respiratory at bedside to initiate biPap.
--- NOTE | 2019-07-23 23:30 | NUR ---
Patient repositioned to left side. Positioned with pillows to offload pressure. Patient tolerated well. Will continue to monitor for changes PRN.
[2019-07-24] VITALS (7 sets, daily range): BP systolic 99–153; BP diastolic 66–89
[2019-07-24] MEDS: IPRATROPIUM BROM 0.5 MG/2.5ML INH SOL NEB SCH ×4 (00:30→20:01)
[2019-07-24] MEDS: ALBUTEROL SULF 2.5 MG/0.5ML(0.5%) NEB SOLN NEB SCH ×4 (00:30→20:00)
[2019-07-24] MEDS: ACETYLCYSTEINE 20%(200MG/ML) SOL 4ML NEB SCH ×4 (00:30→20:01)
--- NOTE | 2019-07-24 00:50 | NUR ---
Patient disoriented. Requesting bi-pap be removed because "he is going to get up". Patient reoriented to situation and time. Bi-pap removed, NC placed no patient at 5lpm. Water given PO per patient request. Suctioned orally to assist in clearing secretions. NC removed and Bi-pap replaced. Patient tolerated well.
--- NOTE | 2019-07-24 01:00 | NUR ---
Respiratory paged to assess c-pap alarm.
--- NOTE | 2019-07-24 01:41 | NUR ---
Patient requesting bi-pap mask be removed due to discomfort. Patient educated on the need to continue bi-pap. Patient states, "this is why I need my own machine". Removed and replaced with NC at 5lpm. Patient is disoriented; stating he needs to get up to see his and reports seeing someone "coming after him". Patient reoriented to time, place, and situation. Will medicate patient for anxiety/visual hallucinations as ordered.
[2019-07-24] MEDS: cefTAZidime 1 GM in SODIUM CHL 0.9% 50 ML IV SCH ×3 (02:05→18:14)
--- NOTE | 2019-07-24 02:06 | NUR ---
Patient refusing PRN Haldol. Educated on the rationale for this medication, however patient continues to refuse. Refusing to be repositioned at this time as well. States he will call when he is ready to be turned. Will continue to monitor.
--- NOTE | 2019-07-24 04:26 | NUR ---
Colostomy bag emptied; 60ml dark green soft stool removed. Patient repositioned for comfort. Tolerated well.
[2019-07-24] MEDS: FUROSEMIDE 20 MG/2 ML VIAL IV SCH ×2 (05:52→18:14)
[2019-07-24] MEDS: FERROUS SULFATE 325 MG TAB PO SCH ×3 (05:56→21:53)
[2019-07-24] MEDS: SIMETHICONE 80 MG CHEWABLE TABLET PO SCH ×4 (05:56→21:53)
[2019-07-24 06:03] LABS: Basophils # (auto) 0 uL; Basophils % (auto) 0.3 % (0.0-2.0); Eosinophils # (auto) 0.1 uL; Eosinophils % (auto) 2.3 % (0.0-7.0); Hematocrit 34.4 % (41.0-53.0); Hemoglobin 11.5 g/dL (13.5-17.5); Lymphocytes # (auto) 0.8 uL; Mean Corpuscular Hemoglobin 29.2 pg (28.0-32.0); Mean Corpuscular Hgb Conc. 33.4 g/dL (32.0-36.0); Mean Corpuscular Volume 87.5 fL (80.0-100.0); Monocytes # (auto) 0.4 uL; Monocytes % (auto) 9.3 % (0.0-12.0); Neutrophils # (auto) 3.4 uL; Neutrophils % (auto) 72.1 % (37.0-80.0); Nucleated Red Blood Cells % 0.1 %; Platelet Count (auto) 245 10^3/uL (140-450); Red Blood Cells 3.93 10^6/uL (4.5-5.90); Red Cell Distribution Width 14.9 % (11.8-14.3); White Blood Cell 4.8 10^3/uL (4.4-10.8)
[2019-07-24] MEDS: ACCU-CHEK COMFORT CURVE STRIP VI SCH ×4 (06:20→22:06)
--- NOTE | 2019-07-24 06:20 | NUR ---
BG checked and is 87; Patient refused scheduled Glipizide, as well as ferrous sulfate and Simethicone. Educated on the importance of taking scheduled medications and the indications of these medications. Patient continues to refuse. provided orange juice as requested. Repositioned onto right side. Patient tolerates well. Will continue to monitor for changes PRN.
[2019-07-24] MEDS: glipiZIDE 5 MG TAB PO SCH (06:21)
[2019-07-24] MEDS: SOD CHL 0.9%/ KCL 40MEQ 1,000 ML IV SCH ×3 (06:21→16:22)
[2019-07-24] MEDS: InsuLIN REG 1unit/0.01ml Soln (100units/ml) SC SCH ×4 (06:21→22:00)
[2019-07-24 06:27] LABS: Potassium 3.4 mmol/L (3.5-5.1)
[2019-07-24 06:32] LABS: BUN/Creatinine Ratio 38.7; Calcium 8.9 mg/dL (8.5-10.1)
--- NOTE | 2019-07-24 06:38 | NUR ---
Respiratory note: SCHEDULED MED NEB TX NOT GIVEN. PT WAS AWAKE AND STATED HE DID NOT WANT TX AT THIS TIME. NO RESP DISTRESS NOTED. HR 85, RR 18, SPO2 94% ON 5L N/C. BS ARE COARSE. WILL CONTINUE TO MONITOR.
--- NOTE | 2019-07-24 07:20 | NUR ---
OPENING SHIFT NOTES Assumed care of patient from restaurant shift supervisor RN. Patient is alert and oriented x4 with periods of confusion. Patient was updated on the plan of care and verbalized understanding. Patient is on oxygen 5L/min via Nasal Cannula. Suprapubic catheter is in place, draining clear yellow urine, no odor noted. Bag is hung below bladder level, no kinks or loops noted. Bed is locked, in the lowest position, side rails up x3 and call light is in reach. Patient was encouraged to call for assistance.
[2019-07-24] MEDS: CARVEDILOL 12.5 MG TAB PO SCH ×2 (08:27→18:13)
[2019-07-24] MEDS: Glucerna Carbsteady SHAKE Vanilla 8oz PO SCH ×3 (08:27→18:14)
--- NOTE | 2019-07-24 08:35 | NUR ---
Patient refused breakfast.
--- NOTE | 2019-07-24 08:37 | NUR ---
Dr. Lauren at bedside No new orders received.
--- NOTE | 2019-07-24 09:45 | NUR ---
Patient refusing repositioning. Patient is currently lying diagonal in the bed, with his right leg hanging off of the right side of the bed. Attempted to reposition the patient and he refused. Patient was educated on positioning, verbalized understanding, and continued to refuse. Charge Nurse Mayelin present. Will attempt to reposition another time.
[2019-07-24] MEDS: LISINOPRIL 20 MG TAB PO SCH (09:59)
[2019-07-24] MEDS: amLODIPine BESYLATE 5 MG TAB PO SCH (09:59)
[2019-07-24] MEDS: DOCUSATE SOD 100 MG CAP PO SCH ×2 (09:59→21:54)
[2019-07-24] MEDS: LORATADINE 10 MG TAB PO SCH (09:59)
[2019-07-24] MEDS: SALINE 0.65 % NASAL SPRAY 45ML BOTTLE EACHNOSTRI SCH ×2 (10:00→21:53)
[2019-07-24] MEDS: PANTOPRAZOLE 40 MG TAB PO SCH (10:00)
[2019-07-24] MEDS: FLUTICASONE PROP NASAL SPR 0.05 % (50MCG) 16GM EACHNOSTRI SCH ×2 (10:00→21:53)
[2019-07-24] MEDS: CYANOCOBALAMIN 500 MCG TAB PO SCH (10:00)
[2019-07-24] MEDS: OXYBUTYNIN CHL 5 MG TAB PO SCH ×2 (10:00→21:54)
--- NOTE | 2019-07-24 11:12 | NUR ---
Physical Therapy at bedside. Patient was repositioned. Patient tolerated well.
--- NOTE | 2019-07-24 13:07 | NUR ---
Respiratory note: SCHEDULED MED NEB TX NOT GIVEN. PATIENT DID NOT WANT TX AT THIS TIME. NO RESP DISTRESS NOTED.
--- NOTE | 2019-07-24 14:33 | NUR ---
Fuel Cell Assembler called Left massage for Maribel regarding patient transfer to [facility]. Patient states that he does not want to be transferred, director of health care marketing at bedside stated that his next of kin, Ex- Monie Alcala also does not want him to be transferred. Awaiting call back.
--- NOTE | 2019-07-24 17:18 | NUR ---
Spoke with patient's ex and she will decide tomorrow after speaking with family about [place] location. Will follow up tomorrow about discharge.
[2019-07-24] MEDS: TAMSULOSIN HYDROCHLORIDE 0.4 MG CAP PO SCH (18:13)
--- NOTE | 2019-07-24 19:30 | NUR ---
Opening shift note Assumed care of patient who is A&O x2. disoriented to time and situation. Reoriented patient at this time. Currently on 5L NC with coarse breath sounds throughout. Denies SOB and pain at this time. Colostomy bag intact. Suprapubic catheter in place. Patent and draining light fernanda urine to gravity. Tubing is free from kinks and collection bag hung below the level of the bladder. PIV in left upper arm is intact and patent. Infusing antibiotics as ordered at this time. Patient is a quadriplegic, with minimal independent movement of the upper extremities. Call light is within reach and patient encouraged to call for assistance when needed. Bed is in low locked position with side rails up x2. Will continue to monitor for changes PRN.
--- NOTE | 2019-07-24 19:30 | NUR ---
Closing shift notes Care endorsed to hourly shift manager RN. No signs of distress noted.
[2019-07-24] MEDS: SENNA 8.6 MG TAB PO SCH (21:54)
[2019-07-25] MEDS: IPRATROPIUM BROM 0.5 MG/2.5ML INH SOL NEB SCH ×3 (00:15→11:55)
[2019-07-25] MEDS: ACETYLCYSTEINE 20%(200MG/ML) SOL 4ML NEB SCH ×3 (00:15→14:58)
[2019-07-25] MEDS: ALBUTEROL SULF 2.5 MG/0.5ML(0.5%) NEB SOLN NEB SCH ×3 (00:15→11:55)
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
--- NOTE | 2019-07-25 01:37 | NUR ---
Haldol administered per MD orders due to hallucinations and aggressive behaviors. Nasal canula placed back on patient. Will continue to monitor for effectiveness.
[2019-07-25] MEDS: HALOPERIDOL LACTATE 5 MG/ML INJ VIAL IM PRN (01:44)
[2019-07-25] MEDS: cefTAZidime 1 GM in SODIUM CHL 0.9% 50 ML IV SCH ×3 (02:04→18:00)
[2019-07-25] MEDS: SOD CHL 0.9%/ KCL 40MEQ 1,000 ML IV SCH ×2 (02:05→16:21)
--- NOTE | 2019-07-25 04:28 | NUR ---
Patient is refusing turning. Educated on the importance of turning frequently to maintain skin integrity. Patient continues to be hostile and refuse to be repositioned.
[2019-07-25 05:00] VITALS: BP 128/63
[2019-07-25] MEDS: FUROSEMIDE 20 MG/2 ML VIAL IV SCH ×2 (06:04→17:59)
[2019-07-25] MEDS: FERROUS SULFATE 325 MG TAB PO SCH ×2 (06:04→13:20)
[2019-07-25] MEDS: SIMETHICONE 80 MG CHEWABLE TABLET PO SCH ×3 (06:04→17:58)
[2019-07-25] MEDS: ACCU-CHEK COMFORT CURVE STRIP VI SCH ×3 (06:05→17:57)
[2019-07-25] MEDS: glipiZIDE 5 MG TAB PO SCH (06:14)
[2019-07-25] MEDS: InsuLIN REG 1unit/0.01ml Soln (100units/ml) SC SCH ×3 (06:15→17:57)
[2019-07-25 08:00] VITALS: BP 146/80
[2019-07-25] MEDS: Glucerna Carbsteady SHAKE Vanilla 8oz PO SCH ×3 (08:00→17:58)
--- NOTE | 2019-07-25 08:05 | NUR ---
OPENING SHIFT NOTE: PATIENT MOVING UPPER EXTREMITIES IN BED, MUMBLING WORDS. THIS RN TURNED ON ALL LIGHTS AND RE-ADJUSTED PILLOW PLACEMENT UNDER KNEES AND SACRUM FOR SUPPORT. PATIENT THEN ABLE TO SPEAK MORE CLEARLY, A/OX4. PATIENT MOUTH DRY, GIVEN COOL WATER PATIENT APPRECIATED. HEAD OF THE BED LOWERED PER PATIENT REQUEST. RIGHT HIP DRESSING CDI, COLOSTOMY BAG MINIMAL STOOL NOTED MOSTLY GAS. SUPRAPUBIC CATHETER HUNG BELOW BLADDER, AND DRAINING PALE YELLOW CLOUDY URINE. PULSES PRESENT BILATERALLY ON DORSALIS PEDIS, BONITA BOOTS ON AND IN PLACE, NO REDNESS NOTED TO HEELS. IV NOT ABLE TO FLUSH, AND REDNESS PRESENT. NOC RN ATTEMPTED IV START BUT WAS UNSUCCESSFUL. MIDLINE ORDER PLACED. UPDATED PATIENT ON PLAN OF CARE, PATIENT VERBALIZED UNDERSTANDING. PATIENT REQUESTING TO EAT BREAKFAST IN "10-15 MIN WHEN CAREGIVER NATHALIE GETS HERE." CALL LIGHT PLACED WITHIN REACH.
--- NOTE | 2019-07-25 08:26 | NUR ---
MD DAVIDSON ROUNDING.
[2019-07-25] MEDS: SALINE 0.65 % NASAL SPRAY 45ML BOTTLE EACHNOSTRI SCH (09:56)
[2019-07-25] MEDS: FLUTICASONE PROP NASAL SPR 0.05 % (50MCG) 16GM EACHNOSTRI SCH (09:56)
[2019-07-25] MEDS: DOCUSATE SOD 100 MG CAP PO SCH (09:59)
[2019-07-25] MEDS: LISINOPRIL 20 MG TAB PO SCH (10:00)
[2019-07-25] MEDS: CYANOCOBALAMIN 500 MCG TAB PO SCH (10:00)
[2019-07-25] MEDS: OXYBUTYNIN CHL 5 MG TAB PO SCH (10:01)
[2019-07-25] MEDS: CARVEDILOL 12.5 MG TAB PO SCH ×2 (10:04→17:58)
[2019-07-25] MEDS: amLODIPine BESYLATE 5 MG TAB PO SCH (10:04)
[2019-07-25] MEDS: LORATADINE 10 MG TAB PO SCH (10:05)
[2019-07-25] MEDS: PANTOPRAZOLE 40 MG TAB PO SCH (10:05)
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
[2019-07-25 12:00] VITALS: BP 162/86
--- NOTE | 2019-07-25 12:20 | NUR ---
Pt refused PT tx. Addendum: 07/25/19 at 1220 by Ever Mosley TRANSITION ASSISTANT Amended: Links added.
--- NOTE | 2019-07-25 12:21 | NUR ---
Pt refused PT tx for today. Addendum: 07/25/19 at 1223 by Ever Mosley WAX BLEACHER Amended: Links added.
--- NOTE | 2019-07-25 12:25 | NUR ---
COLOSTOMY BAG CHANGED. 100CC APPROX, SOFT BROWN GREEN STOOL NOTED IN THE BAG.
[2019-07-25] MEDS: ACETAMINOPHEN 500 MG TAB PO PRN (12:29)
--- NOTE | 2019-07-25 13:00 | NUR ---
IV IN LEFT UPPER ARM DISCONTINUED. MANUAL PRESSURE APPLIED. PICC LINE RN MADE AWARE OF NO IV ACCESS AT THIS TIME.
--- NOTE | 2019-07-25 14:35 | NUR ---
PICC LINE SUSANA SMALL AT BEDSIDE ATTEMPTING ULTRASOUND GUIDED PERIPHERAL IV.
--- NOTE | 2019-07-25 15:31 | NUR ---
Discharge planning per SS consult, patient has orders for higher level of care placement. Referral was sent to [facility] [phone], please call this number to give report. Received a follow up call from Tri at [place] [phone] and was advised that patient was accepted to the facility into [address] Gomes. Transportation was arranged with [facility] [phone], and scheduled pick remover time is for 6pm, and it was confirmed with Figueroa at [facility]. Nurse Patel, attending RN was advised of dc plan. (ex) Monie Alcala [phone] was also advised of dc plan and provided facility information.
--- NOTE | 2019-07-25 16:00 | NUR ---
DC PATIENT UPDATE: PATIENT UPDATED ON PLAN OF CARE. VERBALIZED UNDERSTANDING AND THIS RN ATTEMPTED TO ADDRESS ALL CONCERNS.
--- NOTE | 2019-07-25 16:17 | NUR ---
PATIENT CARE: CAREGIVER NATHALIE PERFORMING FULL BED BATH.
[2019-07-25 16:29] VITALS: BP 162/52
--- NOTE | 2019-07-25 16:58 | NUR ---
REPORT GIVEN TO TAMMIE MEZA AT [facility].
[2019-07-25 17:00] VITALS: BP 165/84
[2019-07-25] MEDS: TAMSULOSIN HYDROCHLORIDE 0.4 MG CAP PO SCH (17:58)
--- NOTE | 2019-07-25 18:37 | NUR ---
PATIENT DISCHARGED TO [facility]: [facility] TRANSPORTATION ARRIVED ON UNIT FOR OVERHEAD CLEANER MAINTAINER. PATIENT HAD ALL BELONGINGS TAKEN DOWN TO PRIVATE AUTO VIA CAREGIVER NATHALIE. PATIENT GIVEN ALL EDUCATION MATERIALS. IV REMAINED INTACT FOR TRANSPORTATION. TELE BOX RETURNED TO CARDIO UNIT. PATIENT TOLERATED BED TRANSFER WELL. RESPIRATIONS EVEN AND UNLABORED. NO SIGNS OF DISTRESS NOTED. PATIENT EXPRESSED GRATITUDE FOR HIS CARE.
== END 2019-07-25 18:30 | disposition short-term general hospital (02) | DRG 177 ==
LOC: ER 15:13 → EDBD 15:13 → TELE 15:14 → TELE-CENTR 20:11 → TELE-WESTW 21:10
PROVIDERS: ADMIT Internal Medicine; ATTEND Hospitalist
PROC: 0B978ZZ Drainage of Left Main Bronchus, Via Natural or Artificial Opening Endoscopic (ICD-10-PCS; principal; 2019-07-15 14:30)
PROC: 0B9B8ZZ Drainage of Left Lower Lobe Bronchus, Via Natural or Artificial Opening Endoscopic (ICD-10-PCS; 2019-07-18)
DX: J69.0 Pneumonitis due to inhalation of food and vomit (principal); J96.01 Acute respiratory failure with hypoxia; G82.50 Quadriplegia, unspecified; G93.41 Metabolic encephalopathy; J98.11 Atelectasis; Z68.41 Body mass index [BMI] 40.0-44.9, adult; N39.0 Urinary tract infection, site not specified; E87.1 Hypo-osmolality and hyponatremia; K57.92 Diverticulitis of intestine, part unspecified, without perforation or abscess without bleeding; J93.82 Other air leak; K57.32 Diverticulitis of large intestine without perforation or abscess without bleeding; Z16.23 Resistance to quinolones and fluoroquinolones; E87.6 Hypokalemia; E11.21 Type 2 diabetes mellitus with diabetic nephropathy; E66.01 Morbid (severe) obesity due to excess calories; B96.20 Unspecified Escherichia coli [E. coli] as the cause of diseases classified elsewhere; E11.40 Type 2 diabetes mellitus with diabetic neuropathy, unspecified; I10 Essential (primary) hypertension; F29 Unspecified psychosis not due to a substance or known physiological condition; K21.9 Gastro-esophageal reflux disease without esophagitis; N31.9 Neuromuscular dysfunction of bladder, unspecified; Z79.4 Long term (current) use of insulin; Z82.0 Family history of epilepsy and other diseases of the nervous system; Z82.49 Family history of ischemic heart disease and other diseases of the circulatory system; Z83.3 Family history of diabetes mellitus; Z87.820 Personal history of traumatic brain injury; Z93.3 Colostomy status; Z87.828 Personal history of other (healed) physical injury and trauma; Z68.36 Body mass index [BMI] 36.0-36.9, adult
CPT/HCPCS: 31720; 36415; 70450; 71045; 71250; 74176; 74220; 78452; 80048; 80053; 80202; 81001; 82140; 82533; 82607; 82746; 82962; 83036; 83735; 83880; 84100; 84443; 84484; 85025; 85610; 85730; 87070; 87077; 87086; 87088; 87186; 87205; 87804; 92611; 93017; 93306; 94640; 94660; 94668; 95819; 97110; 97116; 97530; G0378; J0153; J0171; J1815; J1956; J2250; J3480